=== PATIENT | male | born 1950 | race Caucasian/White ===

== ENCOUNTER 2020-06-29 16:14 | Inpatient (IN) | payer MEDICARE, SELFPAY ==
[2020-06-29] VITALS (22 sets, daily range): BP systolic 77–167; BP diastolic 35–99; PULSE 105–138; RESP 18–28; TEMP 36.9–37.4; O2SAT 94–100
--- NOTE | ~2020-06-29 | XR_ITS ---
EXAMINATION: XR chest port-a-cath/central DATE: 06/30/2020 01:31 INDICATION: Central line placement. TECHNIQUE: frontal view of the chest was obtained. COMPARISON: None FINDINGS: Right subclavian central venous catheter with distal tip extending cephalad into the right jugular ve in. Per discussion with the patient's nurse that line has since been removed and a femoral central ve nous catheter has been placed. Mild linear atelectasis along both lung bases. No pulmonary edema, pleural effusion or pneumothorax. The cardiomediastinal silhouette is normal. IMPRESSION: 1. Mild bibasilar atelectasis. 2. Right subclavian central venous catheter which extends into the right jugular vein which per repor t from patient's nurse has since been removed. Reviewed, dictated and finalized at location A. IMPRESSION: 1. Mild bibasilar atelectasis. 2. Right subclavian central venous catheter which extends into the right jugula r vein which per report from patient's nurse has since been removed.
--- NOTE | ~2020-06-29 | CT_ITS ---
EXAMINATION: CT abdomen pelvis wo con EXAM DATE: 06/29/2020 18:20 INDICATION: Nausea, vomiting, diarrhea, abdominal and groin pain, symptoms for-5 days. TECHNIQUE: Spiral CT of the abdomen and pelvis was performed without contrast. Axial, coronal and s agittal images were reviewed. The dose-length product (DLP) for this examination was 1083.86 mGy-cm. The exposure was tailored according to patient size (auto mA exposure control), and iterative recon struction (ASIR) was used as additional dose reduction technique. There is no prior study for compar javid. FINDINGS: The liver, spleen, adrenal glands and pancreas are unremarkable. The gallbladder is disten ded but otherwise unremarkable. There is no biliary duct dilation. There is a 4 mm stone in the proximal aspect of the right ureter with mild right-sided obstructive ne phropathy. There is a larger 7 mm right inferior calyceal stone and some other smaller inferior calyc eal stones. On the left, there is a 5 mm stone in the distal aspect of the ureter, 2 cm from the uret erovesicular junction. No hydronephrosis on the left at present. The prostate is unremarkable. The bladder is unremarkable. There is no retroperitoneal or pelvic lymphadenopathy. There is mild to m oderate scattered arteriosclerotic disease. The appendix is not positively visualized. There is no pericecal inflammatory change to suggest appe ndicitis. There is moderate-sized gastroesophageal hiatal hernia. There is expected amount of col onic stool. No free intraperitoneal gas. The heart is normal in size. There are no pericardial o r pleural effusions. The lung bases are unremarkable. There are no osteoblastic or osteolytic lesio ns identified. IMPRESSION: 1. Right proximal ureteral 4 mm stone, mild obstructive nephropathy. 2. Left distal ureteral 5 mm stone without hydronephrosis. Reviewed, dictated and finalized at location A.
--- NOTE | ~2020-06-29 | XR_ITS ---
EXAMINATION: XR retrograde pyelo w/stent BI EXAM DATE: 06/29/2020 21:53 INDICATION: Bilateral stent placement. Bilateral ureteral stones. TECHNIQUE: Fluoroscopy used during XR retrograde pyelo w/stent BI performed by Dr. Xu Art MD. The DAP for this procedure was 417 radcm2 FINDINGS: Static images demonstrate right ureteral injection, than left ureteral ejection, placement of bilateral ureteral stents. There are multiple pelvic calcifications consistent with phleboliths, although one of them on the left could be the distal ureteral stone seen on CT. There is mild to mode rate left caliectasis, mild right caliectasis on the images available. Correlate with procedure note . IMPRESSION: Fluoroscopy used during XR retrograde pyelo w/stent BI. Reviewed, dictated and finalized at location G.
--- NOTE | ~2020-06-29 | XR_ITS ---
EXAMINATION: XR abdomen/kub 1V DATE: 07/03/2020 09:04 INDICATION: Ureteral stone. TECHNIQUE: A supine view of the abdomen on 2 radiographs was obtained. COMPARISON: CT abdomen and pelvis 06/29/2020 FINDINGS: There are no dilated loops of bowel. There are phleboliths in the pelvis. There are bilater al internal ureteral stents in expected positions. The kidneys are obscured by bowel. There are 7 mm and 3 mm stones in right kidney. There is a 4 mm stone in distal left ureter. IMPRESSION: 1. 4 mm stone in distal left ureter. 2. Bilateral internal ureteral stents in expected positions. 3. Right kidney stones. Reviewed, dictated and finalized at location A.
[2020-06-29 17:35] LABS: Hematocrit 37.1 % (42.0-52.0); Hemoglobin 12.6 g/dL (14.0-18.0); Immature Platelet Fraction Pct 5.6 % (0.9-11.2); Mean Corpuscular Hemoglobin 29.9 pg (26-34); Mean Corpuscular Volume 88.1 fl (80-100); Mean Platelet Volume 10.6 fl (7.4-10.4); Platelet Count Result 116 k/mm3 (150-375); Red Blood Count 4.21 M/mm3 (4.6-6.20); Red Cell Distribution Width 12.8 % (11.5-14.5); White Blood Count 25.5 K/mm3 (4.5-10.0)
[2020-06-29 17:42] LABS: Add Urine Microscopic? YES; Appearance Urine Turbid (Clear); Bacteria Urine 1+ /hpf; Bilirubin Urine Negative (Negative); Blood Urine 3+ (Negative); Color Urine Yellow (Yellow); Glucose Urine UA Negative (Negative); Ketones Urine Negative (Negative); Leukocyte Esterase Ur 2+ LEU/UL (Negative); Nitrate Urine Negative (Negative); Protein Urine 2+ mg/dL (Negative); RBC Urine >75 /hpf (0-2); Specific Grav Ur 1.016 (1.001-1.035); Squamous Epithelial Cell Urine Few /hpf (Few); Urobilinogen Urine Negative mg/dL (<2.0); WBC Urine >75 /hpf
[2020-06-29 17:45] LABS: Alanine Aminotransferase 19 U/L (4-50); Albumin Level 3.8 g/dL (3.5-5.1); Alkaline Phosphatase 92 U/L (38-126); Anion Gap 13 mmol/L (8-16); Aspartate Amino Transferase 25 U/L (17-59); Bilirubin,Total 1.1 mg/dL (0.2-1.3); Blood Urea Nitrogen 41 mg/dL (9-20); Calcium 9.1 mg/dL (8.4-10.2); Carbon Dioxide 21 mmol/L (22-30); Chloride 102 mmol/L (98-107); Estimated CRCL calculation 17 ml/min; Estimated Glomerular Filt Rate 16; Glucose 116 mg/dL (75-110); Lipase 20 U/L (23-300); Potassium 3.4 mmol/L (3.4-5.0); Sodium 136 mmol/L (137-145)
[2020-06-29 17:59] LABS: Band Neutrophils Percent 21 % (0-6); Lymphocytes Absolute Manual 1.27 K/mm3 (1.1-4.5); Metamyelocytes Percent 3 %; Monocytes Absolute Manual 1.02 K/mm3 (0.1-0.90); Monocytes Percent Manual 4 % (3-9); Neutrophils Absolute Manual 22.44 K/mm3 (1.3-6.7); Neutrophils Percent Manual 67 % (46-73); Platelet Estimate Decreased (Adequate); Total Cells Counted 100
--- NOTE | 2020-06-29 18:59 | PC.NURSE ---
blood cultures x 2 obtained by tech.
[2020-06-29 19:11] LABS: INR 1.4; Prothrombin Time 16.6 Seconds (11.1-14.7)
[2020-06-29 19:12] LABS: Partial Thromboplastin Time 45.4 SECONDS (22.3-36.8)
[2020-06-29 19:22] LABS: Lactic Acid Reflex 2.6 mmol/L (0.7-2.1)
--- NOTE | 2020-06-29 19:32 | ED.ABDPAIN ---
HPI - Abdominal Pain General Chief Complaint: Abdominal Pain Stated Complaint: Sent from [facility], Abd Pain Time Seen by Provider: 06/29/20 18:32 Source: patient Mode of arrival: ambulatory Limitations: no limitations History of Present Illness HPI narrative: This is a 69 year old male that presents to the ER for low abdominal pain x 4 days. Associated with nausea, vomiting, and flank pain. Also reports chills. Denies fever, dysuria, hematuria. Related Data Home Medications Medication Instructions Recorded Confirmed ferrous sulfate 325 mg (65 mg 325 mg PO DAILY 10/28/19 iron) tablet silodosin 8 mg capsule 8 mg PO DAILY 10/28/19 Allergies Allergy/AdvReac Type Severity Reaction Status Date / Time No Known Allergies Allergy Verified 06/29/20 18:34 Review of Systems Review of Systems: Narrative: CONSTITUTIONAL: Reports chills. Denies fever CARDIOVASCULAR: Denies chest pain RESPIRATORY: Denies dyspnea. GASTROINTESTINAL: Reports abdominal pain, nausea, vomiting GENITOURINARY: Denies dysuria or hematuria. All systems reviewed & are unremarkable except as noted in HPI and below PMFSH Past Medical History Medical History (Updated 06/29/20 @ 21:24 by Kimberly Madden PA-C) Adult hypothyroidism Anemia due to vitamin B12 deficiency B12 deficiency Benign essential hypertension BMI 26.0-26.9,adult BPH loc w/o ur obs/LUTS Depression Gastroesophageal reflux disease without esophagitis Iron deficiency anemia Mixed hyperlipidemia Type 2 diabetes mellitus without complication, with no history of insulin use Family History Family History Mother Family history of cardiac disorder Family history of heart disease in male family member before age 55 Father Family history of chronic obstructive pulmonary disease Sibling Family history of malignant neoplasm of ovary, Onset Age: 54 Social History Social History Smoking status: Never smoker Alcohol intake: never Gender identity (if verbalized by the patient): Male Exam Narrative: Exam Narrative: GENERAL: Well-appearing, well-nourished, and in no acute distress. HEAD: Normocephalic, atraumatic. EYES: EOMI. CHEST: Clear to auscultation. No respiratory distress. No wheezes rales or rhonchi HEART: Regular rate and rhythm. No murmur heard. Normal peripheral pulses. ABDOMEN: Soft, nondistended, normal active bowel sounds. Mild tenderness to palpation of the lower abdomen, without guarding. No CVA tenderness EXTREMITIES: Normal range of motion. No edema. SKIN: Warm, dry, no rash. NEURO: No focal deficits. Alert and oriented x3. PSYCH: Normal mood and affect Course Consultations Consultation #1: Spoke with Dr. Lomas who will consult for acute kidney failure. Date: 06/29/20 Time: 21:00 Consultation #2: Spoke with hospitalist about patient and work-up who accepts admission Date: 06/29/20 Time: 21:00 Consultation #3: Spoke with Dr. Art about patient and work-up. Patient will be taken to the OR for septic ureterolithiasis Date: 06/29/20 Time: 21:00 Vital Signs Vital signs: Vital Signs Temperature 98.8 F 06/29/20 16:58 Pulse Rate 120 H 06/29/20 16:58 Respiratory Rate 18 06/29/20 16:58 Blood Pressure 94/50 L 06/29/20 16:58 Pulse Oximetry 96 06/29/20 16:58 Temperature 98.8 F 06/29/20 16:58 Pulse Rate 108 H 06/29/20 20:53 Respiratory Rate 22 H 06/29/20 20:53 Blood Pressure 102/64 06/29/20 20:53 Pulse Oximetry 99 06/29/20 20:53 MDM - Abdominal Pain MDM Narrative Medical decision making narrative: Patient presents to the emergency department for lower abdominal pain, nausea and vomiting. Also reports flank pain and chills. He is afebrile and nontoxic-appearing. Patient tachycardic upon arrival, this improved with IV fluids. Blood pressure also soft (94/50) on arrival, this improved with IV fluids as well.
[2020-06-29] MEDS: SODIUM CHLORIDE 0.9% IV 2,300 ML/1,000 ML BAG 999 ML IV CONT ×3 (19:47→19:49)
[2020-06-29 19:51] LABS: NT Pro B Type Natriuretic Pept 5090 PG/ML (5-100)
--- NOTE | 2020-06-29 19:53 | ECG_ITS ---
Measurements Intervals [place] Rate: 130 P: 27 IA: 153 QRS: 25 QRSD: 77 T: 25 QT: 333 QTc: 490 Interpretive Statements SINUS TACHYCARDIA BORDERLINE ST-T WAVE ABNORMALITY- DIFFUSE LEADS BASELINE ARTIFACT- I, II, III, AVR, AVL, AVF, V1, V6 ABNORMAL ECG Electronically Signed On 06-30-2020 7:04:33 CDT by Marlon Berman D.O.
[2020-06-29 19:58] LABS: CRP 36.3 mg/dL (<1.0)
--- NOTE | 2020-06-29 20:36 | WPDANESEPP ---
Anes - Eval Pre Procedure Procedure: cysto, bilat. stent placement Date/Time: 06/29/20 20:36 Surgeon: farideh Pre Op Diagnosis: Sent from [facility], Abd Pain Patient Data Age: 69 Gender: M Height: 1.75 m Weight: 77.1 kg Last Vital Signs Temp 37.1 C 06/29/20 16:58 Pulse 114 H 06/29/20 19:47 Resp 25 H 06/29/20 19:47 BP 145/99 H 06/29/20 19:47 Pulse Ox 94 06/29/20 18:33 Allergies Allergy/AdvReac Type Severity Reaction Status Date / Time No Known Allergies Allergy Verified 06/29/20 18:34 Home Medications Medication Instructions Recorded Confirmed Type ferrous sulfate 325 mg (65 mg 325 mg PO DAILY 10/28/19 History iron) tablet silodosin 8 mg capsule 8 mg PO DAILY 10/28/19 History metformin 1,000 mg tablet See Rx Instructions .ROUTE 12/20/19 Rx .COMPLEX #180 tablet tamsulosin 0.4 mg capsule 0.4 mg PO DAILY #90 cap 01/18/20 Rx metoprolol succinate 50 mg 50 mg PO DAILY #90 tablet 03/13/20 Rx tablet,extended release 24 hr pantoprazole 40 mg tablet,delayed 40 mg PO QAM #90 tablet 03/13/20 Rx release rosuvastatin 40 mg tablet 40 mg PO DAILY #90 tablet 03/13/20 Rx levothyroxine 88 mcg tablet 88 mcg PO DAILY #90 tablet 04/13/20 Rx citalopram 20 mg tablet 20 mg PO DAILY #90 tablet 06/06/20 Rx quinapril 20 mg tablet 20 mg PO DAILY #90 tablet 06/12/20 Rx Laboratory Tests 06/29/20 06/29/20 06/29/20 17:09 17:10 17:10 WBC 25.5 K/mm3 H K/mm3 (4.5-10.0) RBC 4.21 M/mm3 L M/mm3 (4.6-6.20) Hgb 12.6 g/dL L g/dL (14.0-18.0) Hct 37.1 % L % (42.0-52.0) MCV 88.1 fl fl (80-100) MCH 29.9 pg pg (26-34) MCHC 34.0 g/dl g/dl (32-36) RDW 12.8 % % (11.5-14.5) Plt Count 116 k/mm3 L k/mm3 (150-375) MPV 10.6 fl H fl (7.4-10.4) Immature Gran % (Auto) Not Reportable Neut % (Auto) Not Reportable Lymph % (Auto) Not Reportable [place] % (Auto) Not Reportable Eos % (Auto) Not Reportable Baso % (Auto) Not Reportable Lymph # (Auto) Not Reportable [place] # (Auto) Not Reportable Eos # (Auto) Not Reportable Baso # (Auto) Not Reportable Abs Immat Gran (auto) Not Reportable Absolute Neuts (auto) Not Reportable Absolute Nucleated RBC Not Reportable Total Counted 100 Neutrophils % (Manual) 67 % % (46-73) Band Neutrophils % 21 % H % (0-6) Lymphocytes % (Manual) 5.0 % L % (18-44) Monocytes % (Manual) 4 % % (3-9) Metamyelocytes % 3 % % Nucleated RBC % Not Reportable Abs Neuts (Manual) 22.44 K/mm3 H K/mm3 (1.3-6.7) Abs Lymphs (Manual) 1.27 K/mm3 K/mm3 (1.1-4.5) Abs Monocytes (Manual) 1.02 K/mm3 H K/mm3 (0.1-0.90) Platelet Estimate Decreased (Adequate) % Immature Plt Fraction 5.6 % % (0.9-11.2) PT INR APTT Sodium 136 mmol/L L mmol/L (137-145) Potassium 3.4 mmol/L mmol/L (3.4-5.0) Chloride 102 mmol/L mmol/L (98-107) Carbon Dioxide 21 mmol/L L mmol/L (22-30) Anion Gap 13 mmol/L mmol/L (8-16) BUN 41 mg/dL H mg/dL (9-20) Creatinine 3.80 mg/dL H mg/dL (0.7-1.3) Estim Creat Clear Calc 17 ml/min ml/min Estimated GFR 16 L (59 - ) Glucose 116 mg/dL H mg/dL (75-110) Lactic Acid Calcium 9.1 mg/dL mg/dL (8.4-10.2) Total Bilirubin 1.1 mg/dL mg/dL (0.2-1.3) AST 25 U/L U/L (17-59) ALT 19 U/L U/L (4-50) Alkaline Phosphatase 92 U/L U/L (38-126) C-Reactive Protein NT-Pro-B Natriuret Pep 5090 PG/ML H PG/ML (5-100) Total Protein 7.0 g/dL g/dL (6.3-8.2) Albumin 3.8 g/
--- NOTE | 2020-06-29 20:53 | PC.NURSE ---
rn report given maurice
--- NOTE | 2020-06-29 21:09 | PM.IMHP ---
H&P: HPI History of Present Illness Date/Time: 06/29/20 21:09 Chief complaint: [facility], Abd Pain Narrative: Davi Hendrix is a 69 year old male known to me with a prior history of BPH managed with combination of finasteride and tamsulosin. He then presented 1st to a urgent care and later ER at [facility] with a 4 day history of abdominal pain nausea vomiting and chilling without documented fevers. ER evaluation revealed a picture of sepsis with acute kidney injury and bilateral obstructing ureteral stones (4 mm proximal right ureteral stone and 5 mm distal left ureteral stone). Review of Systems Cardiovascular: Cardiovascular: Denies chest pain, Denies lightheadedness, Denies palpitations and Denies dyspnea Respiratory: Respiratory: Denies dyspnea Gastrointestinal: Gastrointestinal: Denies diarrhea, Denies nausea and Denies vomiting Genitourinary: Genitourinary: Denies hematuria and Denies dysuria Endocrine: Endocrine: Denies palpitations PMFSH Past Medical History Medical History (Updated 06/29/20 @ 21:11 by Xu Art MD) Adult hypothyroidism Anemia due to vitamin B12 deficiency B12 deficiency Benign essential hypertension BMI 26.0-26.9,adult BPH loc w/o ur obs/LUTS Depression Gastroesophageal reflux disease without esophagitis Iron deficiency anemia Mixed hyperlipidemia Type 2 diabetes mellitus without complication, with no history of insulin use Family History Family History Mother Family history of cardiac disorder Family history of heart disease in male family member before age 55 Father Family history of chronic obstructive pulmonary disease Sibling Family history of malignant neoplasm of ovary, Onset Age: 54 Social History Social History Smoking status: Never smoker Alcohol intake: never Gender identity (if verbalized by the patient): Male Meds Home Medications and Allergies Home Medications Medication Instructions Recorded Confirmed Type ferrous sulfate 325 mg (65 mg 325 mg PO DAILY 10/28/19 History iron) tablet silodosin 8 mg capsule 8 mg PO DAILY 10/28/19 History metformin 1,000 mg tablet See Rx Instructions .ROUTE 12/20/19 Rx .COMPLEX #180 tablet tamsulosin 0.4 mg capsule 0.4 mg PO DAILY #90 cap 01/18/20 Rx metoprolol succinate 50 mg 50 mg PO DAILY #90 tablet 03/13/20 Rx tablet,extended release 24 hr pantoprazole 40 mg tablet,delayed 40 mg PO QAM #90 tablet 03/13/20 Rx release rosuvastatin 40 mg tablet 40 mg PO DAILY #90 tablet 03/13/20 Rx levothyroxine 88 mcg tablet 88 mcg PO DAILY #90 tablet 04/13/20 Rx citalopram 20 mg tablet 20 mg PO DAILY #90 tablet 06/06/20 Rx quinapril 20 mg tablet 20 mg PO DAILY #90 tablet 06/12/20 Rx Allergies Allergy/AdvReac Type Severity Reaction Status Date / Time No Known Allergies Allergy Verified 06/29/20 18:34 Vital Signs Vital Signs - 24 hr 06/29/20 16:58 06/29/20 18:29 06/29/20 18:30 Temperature 98.8 F Pulse Rate 120 H 110 H 107 H Respiratory Rate 18 18 22 H Blood Pressure 94/50 L 108/64 Pulse Oximetry 96 06/29/20 18:31 06/29/20 18:32 06/29/20 18:33 Temperature Pulse Rate 108 H 107 H 110 H Respiratory Rate 22 H 25 H 21 H Blood Pressure 102/64 102/64 Pulse Oximetry 99 94 06/29/20 18:45 06/29/20 18:46 06/29/20 19:00 Temperature Pulse Rate 112 H 114 H 106 H Respiratory Rate 19 28 H 18 Blood Pressure Pulse Oximetry 06/29/20 19:43 06/29/20 19:45 06/29/20 19:47 Temperature Pulse Rate 113 H 112 H 114 H Respiratory Rate 22 H 23 H 25 H Blood Pressure 145/99 H Pulse Oximetry Exam Const: General: no acute distress Resp: Effort & Inspection: normal respiratory effort GI: Inspection: non-distended GI Palp: No abdominal tenderness and No Guarding due to palpation present (GI) Auscultation: normal bowel sounds
[2020-06-29] MEDS: LIDOCAINE HCL 2% GEL UROJET 10 ML PKG MUCOUS MEM (21:42)
--- NOTE | 2020-06-29 21:56 | WPDANESEFPP ---
Anes - Eval Final PreProcedure Day of Procedure 06/29/20 21:56 Patient weight: normal Heart: tachycardia Lungs: clear to auscultation Airway: Mallampati scale class II Neurological: alert and oriented Last oral intake: >/= 8 hours ASA classification: III Emergent: yes Anesthetic plan: proceed Anesthesia type and monitoring: general ETT and standard monitoring Informed Consent: The patient's anesthetic plan and its attendant risks and benefits were discussed with the patient/family/POA. Questions were solicited and answers provided to the satisfaction of the patient/family/POA.
[2020-06-29] MEDS: LACTATED RINGERS 1,000 ML 30 ML IV CONT ×2 (21:58→23:31)
[2020-06-29 22:08] LABS: Reflex Lactic Acid Yes or No Add Lactic
--- NOTE | 2020-06-29 22:12 | P.OP_ITS ---
Procedure Note - Detailed Date of procedure: 06/29/20 Pre-op diagnosis: Sepsis/UTI/ureterolithiasis Post-op diagnosis: same Procedure performed: 1. Cystoscopy, bilateral RPG. 2. Bilateral ureteral stent placement. Description of procedure: Patient is brought to OR where he was prepped/draped in a routine fashion while in a dorsal lithotomy position. 2% xylocaine jelly was introduced intraurethrally and a general endotracheal anesthetic was induced without incident. Cystoscopy is undertaken with the 19 F rigid cystoscope. There is no urethral stricture with moderate lateral lobe hyperplasia of the prostate and a moderate median lobe. The bladder mucosa as high as markedly hyperemic consistent with acute bacterial cystitis. His a single orthotopic ureteral orifice bilaterally. Bilateral retrograde pyelograms were obtained o utlined the renal pelvis. Bilateral 4.8 F double-J ureteral stents were placed with proximal coil in the renal pelvis and distal coil in the bladder. Scopes and wires were removed. An 18 F urethral catheter was placed to drainage. The patient tolerated procedure well was taken recovery room in good condition. He did become febrile and remained tachycardic throughout the procedure. Implants: Bilat. 4.8F ureteral stents. Anesthesia: GETA Surgeon: Xu Art MD Estimated blood loss (mL): 0 Drains: Yes (Bilat. ureteral 4.8F stents) Packing: No Pathology: none sent Complications: No immediate complications Condition: stable Disposition: PACU
[2020-06-29 22:46] LABS: Glucose Point of Care 89 (65-105)
[2020-06-29] MEDS: PHENYLEPHRINE 1,000 MCG/10 ML SYRINGE 100 MCG IV PUSH ×2 (23:43→23:51)
[2020-06-30] VITALS (25 sets, daily range): BP systolic 84–129; BP diastolic 50–90; PULSE 83–107; RESP 18–28; TEMP 36.6–37.4; O2SAT 92–99; BMI 26.9
[2020-06-30] MEDS: DEXTROSE 5%/LACTATED RINGERS 1,000 ML 150 ML IV CONT ×2 (01:05→06:40)
[2020-06-30] MEDS: NOREPINEPHRINE 8 MG/D5W 250 ML 8 MG/250 ML BAG 9.38 MG IV CONT (02:10)
[2020-06-30 02:13] LABS: Lactic Acid Reflex 2.3 mmol/L (0.7-2.1)
--- NOTE | 2020-06-30 03:09 | PM.IMHP ---
H&P: HPI History of Present Illness Date/Time: 06/30/20 03:09 Chief complaint: Sepsis/UTI/ureterolithiasis Narrative: This is a pleasant 69-year-old diabetic male with known history of chronic hypertension, hypothyroidism, and GERD who presented to the hospital with a complaint of lower abdominal discomfort since last weekend. Associated symptoms include chills, nausea, vomiting, and malaise. Patient denies any significant fever, dysuria, hematuria, or decreased urine output. in the ER yesterday the patient was evaluated and found to be septic with tachycardia, tachypnea, leukocytosis, and an elevated lactic acid level of 2.6. Patient was treated with a 30 cc/kilogram IV fluid bolus and started on ceftriaxone IV. CT abdomen pelvis demonstrated a right proximal ureteral 4 mm stone, mild obstructive nephropathy and left distal ureteral 5 mm stone without hydronephrosis. Urology, Dr. Art was consulted and took the patient immediately to the operating room to have bilateral ureteral stents placed. the patient became hypotensive in the operating room and recovery and the patient was started on peripheral Anjum-Synephrine. He was then upgraded to the intensive care unit per urology. The patient arrived to the ICU hypotensive on peripheral Anjum-Synephrine and nursing staff called me urgently to evaluate the patient. The patient tolerated stent placement well and currently has no significant complaints other than feeling chills. Review of Systems Review of Systems: All systems reviewed & are unremarkable except as noted in HPI and below PMFSH Past Medical History Medical History Adult hypothyroidism Anemia due to vitamin B12 deficiency B12 deficiency Benign essential hypertension BMI 26.0-26.9,adult BPH loc w/o ur obs/LUTS Depression Gastroesophageal reflux disease without esophagitis Iron deficiency anemia Mixed hyperlipidemia Type 2 diabetes mellitus without complication, with no history of insulin use Family History Family History Mother Family history of cardiac disorder Family history of heart disease in male family member before age 55 Father Family history of chronic obstructive pulmonary disease Sibling Family history of malignant neoplasm of ovary, Onset Age: 54 Social History Social History Smoking status: Never smoker Alcohol intake: never Substance use: never Gender identity (if verbalized by the patient): Male Spiritual care concerns: No Meds Home Medications and Allergies Home Medications Medication Instructions Recorded Confirmed Type ferrous sulfate 325 mg (65 mg 325 mg PO DAILY 10/28/19 06/30/20 History iron) tablet silodosin 8 mg capsule 8 mg PO DAILY 10/28/19 06/30/20 History tamsulosin 0.4 mg capsule 0.4 mg PO DAILY #90 cap 01/18/20 06/30/20 Rx metoprolol succinate 50 mg 50 mg PO DAILY #90 tablet 03/13/20 06/30/20 Rx tablet,extended release 24 hr pantoprazole 40 mg tablet,delayed 40 mg PO QAM #90 tablet 03/13/20 06/30/20 Rx release rosuvastatin 40 mg tablet 40 mg PO DAILY #90 tablet 03/13/20 06/30/20 Rx levothyroxine 88 mcg tablet 88 mcg PO DAILY #90 tablet 04/13/20 06/30/20 Rx citalopram 20 mg tablet 20 mg PO DAILY #90 tablet 06/06/20 06/30/20 Rx quinapril 20 mg tablet 20 mg PO DAILY #90 tablet 06/12/20 06/30/20 Rx finasteride 5 mg PO DAILY 06/30/20 06/30/20 History metformin 1,000 mg PO BID 06/30/20 06/30/20 History Allergies Allergy/AdvReac Type Severity Reaction Status Date / Time No Known Allergies Allergy Verified 06/29/20 18:34 Vital Signs Vital Signs - 24 hr 06/29/20 16:58 06/29/20 18:29 06/29/20 18:30 Temperature 37.1 C Pulse Rate 120 H 110 H 107 H Respiratory Rate 18 18 22 H Blood Pressure 94/50 L 108/64 Pulse Oximetry 96 06/29/20 18:31 06/29/20 18:32 06/29/20 18:
--- NOTE | 2020-06-30 03:12 | PC.NURSE ---
This patient, Davi Hendrix, was admitted to Intensive Care Unit-10 at 0030 06/30/2020. Patient/family oriented to hospital policies and general routines including ID bracelet, bed and alarms, visiting hours, pain management, procedures, bathroom and other care routines, personal items, smoking policy, room service/diet, and visiting hours. Information on how to activate the Rapid Response Team has been discussed. Patient/Family are encouraged to report perceived risks to care and to ask questions if they do not understand what they are told or what they should do.
--- NOTE | 2020-06-30 03:20 | P.PCNBED_ITS ---
Procedures Central Line Placement Right Femoral: Central Line Date: 06/30/20 Central Line Time: 02:30 Discussed w/ the patient/family/POA,the placement of a central venous catheter, including its clinical necessity/indication & associated potential risks, benifits and alternatives.: Yes Time Out Performed: Yes Patient Position: supine Patient placed on monitor/pulse ox: Yes Provider Prep: mask, sterile gloves, Max. sterile barrier precautions, cap and hand hygiene with conventional soap/water or alcohol based hand rub Central line prep: Povidone-Iodine 1% and sterile full body sheet applied Local anesthesia used: lidocaine 1% Amount of anesthesia used (ml): 5 Sterile US Technique with sterile gel/sterile probe covers: Yes Central line lumen inserted: triple Lithuanian: 7 Length (cm): 20 Depth of Insertion (cm): 20 Post procedure: sutured in place, good blood return, all ports aspirated, flushed, capped, tegaderm, antimicrobial disc and aseptic technique maintained throughout procedure Post procedure x-ray: tip of catheter in good position and no pneumothorax seen Patient tolerated procedure: well and no complications Complications: none Additional comments: Date of service was 06/30/2020 at 02:30 hrs.
[2020-06-30 06:10] LABS: Hematocrit 30.7 % (42.0-52.0); Hemoglobin 10.5 g/dL (14.0-18.0); Immature Platelet Fraction Pct 5.9 % (0.9-11.2); Mean Corpuscular HGB Conc 34.2 g/dl (32-36); Mean Corpuscular Hemoglobin 30.2 pg (26-34); Mean Corpuscular Volume 88.2 fl (80-100); Platelet Count Result 82 k/mm3 (150-375); Red Blood Count 3.48 M/mm3 (4.6-6.20); Red Cell Distribution Width 12.9 % (11.5-14.5); White Blood Count 22.7 K/mm3 (4.5-10.0)
[2020-06-30 06:24] LABS: Anion Gap 10 mmol/L (8-16); Blood Urea Nitrogen 42 mg/dL (9-20); Calcium 7.3 mg/dL (8.4-10.2); Carbon Dioxide 20 mmol/L (22-30); Chloride 105 mmol/L (98-107); Estimated CRCL calculation 21 ml/min; Estimated Glomerular Filt Rate 20; Glucose 202 mg/dL (75-110); Potassium 3.3 mmol/L (3.4-5.0); Sodium 135 mmol/L (137-145)
[2020-06-30] MEDS: INSULIN ASPART (*BKC) 100 UNITS/ML SUB-Q ×2 (06:39→12:10)
[2020-06-30] MEDS: LEVOTHYROXINE SODIUM INJ 100 MCG/5 ML VIAL 44 MCG IV PUSH (06:40)
--- NOTE | 2020-06-30 07:29 | WPDANESPN ---
Anes - Prog Note Post-Op Date/Time: 06/30/20 07:29 Cardiovascular status: other (Levophed gtt in per ICU management) Respiratory status: normal Airway patency: baseline Mental status: baseline Post-Op hydration status: normal Vital Signs: Last Vital Signs Temp 36.6 C 06/30/20 02:34 Pulse 96 06/30/20 06:41 Resp 24 H 06/30/20 06:00 BP 102/63 06/30/20 06:41 Pulse Ox 98 06/30/20 06:00 Pain Score (VAS): 10/18 I/O: Intake & Output 06/29/20 06/29/20 06/30/20 15:59 23:59 07:59 Intake Total 3450 1130 Output Total 60 375 Balance 3390 755 Laboratory Tests 06/30/20 06:01 06/30/20 06:01 06/29/20 06/29/20 06/29/20 17:09 17:10 17:10 WBC 25.5 H RBC 4.21 L Hgb 12.6 L Hct 37.1 L MCV 88.1 MCH 29.9 MCHC 34.0 RDW 12.8 Plt Count 116 L MPV 10.6 H Immature Gran % (Auto) Not Reportable Neut % (Auto) Not Reportable Lymph % (Auto) Not Reportable Vigo % (Auto) Not Reportable Eos % (Auto) Not Reportable Baso % (Auto) Not Reportable Lymph # (Auto) Not Reportable [place] # (Auto) Not Reportable Eos # (Auto) Not Reportable Baso # (Auto) Not Reportable Abs Immat Gran (auto) Not Reportable Absolute Neuts (auto) Not Reportable Absolute Nucleated RBC Not Reportable Total Counted 100 Neutrophils % (Manual) 67 Band Neutrophils % 21 H Lymphocytes % (Manual) 5.0 L Monocytes % (Manual) 4 Metamyelocytes % 3 Nucleated RBC % Not Reportable Abs Neuts (Manual) 22.44 H Abs Lymphs (Manual) 1.27 Abs Monocytes (Manual) 1.02 H Platelet Estimate Decreased % Immature Plt Fraction 5.6 PT INR APTT Sodium 136 L Potassium 3.4 Chloride 102 Carbon Dioxide 21 L Anion Gap 13 BUN 41 H Creatinine 3.80 H Estim Creat Clear Calc 17 Estimated GFR 16 L Glucose 116 H POC Capillary Glucose Lactic Acid Calcium 9.1 Total Bilirubin 1.1 AST 25 ALT 19 Alkaline Phosphatase 92 C-Reactive Protein NT-Pro-B Natriuret Pep 5090 H Total Protein 7.0 Albumin 3.8 Lipase 20 L Urine Color Urine Appearance Urine pH Ur Specific Con[place]ion Urine Protein Urine Glucose (UA) Urine Ketones Ur Blood (Man) Urine Nitrate Urine Bilirubin Urine Urobilinogen Leukocyte Esterase Rfl Urine RBC Urine WBC Ur Squamous Epith Cells Urine Bacteria Blood Type Antibody Screen 06/29/20 06/29/20 06/29/20 17:10 17:19 19:02 WBC RBC Hgb Hct MCV MCH MCHC RDW Plt Count MPV Immature Gran % (Auto) Neut % (Auto) Lymph % (Auto) Vigo % (Auto) Eos % (Auto) Baso % (Auto) Lymph # (Auto) [place] # (Auto) Eos # (Auto) Baso # (Auto) Abs Immat Gran (auto) Absolute Neuts (auto) Absolute Nucleated RBC Total Counted Neutrophils % (Manual) Band Neutrophils % Lymphocytes % (Manual) Monocytes % (Manual) Metamyelocytes % Nucleated RBC % Abs Neuts (Manual) Abs Lymphs (Manual) Abs Monocytes (Manual) Platelet Estimate % Immature Plt Fraction PT 16.6 H INR 1.4 APTT 45.4 H Sodium Potassium Chloride Carbon Dioxide Anion Gap BUN Creatinine Estim Creat Clear Calc Estimated GFR Glucose POC Capillary Glucose Lactic Acid 2.6 H Calcium Total Bilirubin AST ALT Alkaline Phosphatase C-Reactive Protein NT-Pro-B Natriuret Pep Total Protein Albumin Lipase Urine Color Yellow Urine Appearance Turbid H Urine pH 6.0 Ur Specific [place] 1.016 Urine Protein 2+ H Urine Glucose (UA) Negative Urine Ketones Negative Ur Blood (Man) 3+ H Urine Nitrate Negative Urine Bilirubin Negative Urine Urobilinogen Negative Leukocyte Esterase Rfl 2+ H Urine RBC >75 H Urine WBC >75 H Ur Squamous Epith Cells Few Urine Bacteria 1
[2020-06-30 08:26] LABS: Lactic Acid Reflex 2.9 mmol/L (0.7-2.1)
[2020-06-30] MEDS: PANTOPRAZOLE SODIUM IV 40 MG VIAL IV PUSH (08:48)
[2020-06-30] MEDS: HEPARIN SODIUM 5,000 UNITS/ML VIAL 5000 UNITS SUB-Q ×2 (08:49→20:27)
[2020-06-30 09:28] LABS: CRP 36.7 mg/dL (<1.0)
--- NOTE | 2020-06-30 10:58 | WPDUROPN2 ---
Progress Note: A&P Assessment and Plan (1) Sepsis: Qualifiers: Acute renal failure type: unspecified Sepsis acute organ dysfunction status: with acute organ dysfunction Sepsis type: sepsis due to unspecified organism Severe sepsis acute organ dysfunction type: acute renal failure Severe sepsis shock status: without septic shock Qualified Code(s): A41.9 - Sepsis, unspecified organism; R65.20 - Severe sepsis without septic shock; N17.9 - Acute kidney failure, unspecified Code(s): A41.9 - Sepsis, unspecified organism Status: Acute (2) Bilateral ureteral calculi: Code(s): N20.1 - Calculus of ureter Status: Acute (3) Acute kidney injury: Code(s): N17.9 - Acute kidney failure, unspecified Status: Acute (4) Pyelonephritis: Code(s): N12 - Tubulo-interstitial nephritis, not specified as acute or chronic Status: Acute Assessment and Plan: Cystoscopy, bilateral ureteral stent placement. Admission for management of obstructive pyelonephritis, DANIELLE, etc. Definite stone intervention ([facility] vs. endoscopic extraction) 2-[address], once UTI thoroughly treated. 06/30/2020 Waning need for pressor support, slightly improved renal function and leukocytosis all positive signs overnight. Tolerating stents well. On Ceftriaxone pending cultures. Will not plan definitive stone management until 2-3 weeks from now. Subjective Subjective Date/Time Seen: 06/30/20 10:58 Bilateral obstructing ureteral stones with obstructive pyelonephritis. Tolerating bilateral ureteral stents. Review of Systems Cardiovascular: Cardiovascular: Denies chest pain, Denies lightheadedness, Denies palpitations and Denies dyspnea Respiratory: Respiratory: Denies dyspnea Gastrointestinal: Gastrointestinal: Denies diarrhea, Denies nausea and Denies vomiting Genitourinary: Genitourinary: Denies hematuria and Denies dysuria Endocrine: Endocrine: Denies palpitations Exam Const: General: no acute distress Resp: Effort & Inspection: normal respiratory effort GI: Inspection: non-distended GI Palp: No abdominal tenderness and No Guarding due to palpation present (GI) Auscultation: normal bowel sounds Objective Data Vital Signs Vital Signs: Vital Signs - 24 hr 06/29/20 16:58 06/29/20 18:29 06/29/20 18:30 Temperature 98.8 F Pulse Rate 120 H 110 H 107 H Respiratory Rate 18 18 22 H Blood Pressure 94/50 L 108/64 Pulse Oximetry 96 06/29/20 18:31 06/29/20 18:32 06/29/20 18:33 Temperature Pulse Rate 108 H 107 H 110 H Respiratory Rate 22 H 25 H 21 H Blood Pressure 102/64 102/64 Pulse Oximetry 99 94 06/29/20 18:45 06/29/20 18:46 06/29/20 19:00 Temperature Pulse Rate 112 H 114 H 106 H Respiratory Rate 19 28 H 18 Blood Pressure Pulse Oximetry 06/29/20 19:43 06/29/20 19:45 06/29/20 19:47 Temperature Pulse Rate 113 H 112 H 114 H Respiratory Rate 22 H 23 H 25 H Blood Pressure 145/99 H Pulse Oximetry 06/29/20 20:53 06/29/20 21:58 06/29/20 22:10 Temperature 99.3 F Pulse Rate 108 H 138 H 131 H Respiratory Rate 22 H 28 H 26 H Blood Pressure 102/64 167/82 H 134/70 Pulse Oximetry 99 96 96 06/29/20 22:25 06/29/20 22:40 06/29/20 22:55 Temperature 98.4 F Pulse Rate 119 H 115 H 109 H Respiratory Rate 24 H 22 H 22 H Blood Pressure 98/56 L 87/45 L 81/46 L Pulse Oximetry 100 97 98 06/29/20 23:10 06/29/20 23:25 06/29/20 23:40 Temperature Pulse Rate 106 H 105 H 105 H Respiratory Rate 22 H 22 H 24 H Blood Pressure 77/41 L 80/35 L 78/41 L Pulse Oximetry 98 99 98 06/29/20 23:55 06/30/20 00:10 06/30/20 00:27 Temperature 99.0 F 98.4 F Pulse Rate 109 H 104 H 106 H Respiratory Rate 24 H 20 23 H Blood Pressure 78/50 L 91/55 L 90/54 L Pulse Oximetry 98 99 94 06/30/20 00:57 06/30/20 01:10 06/30/20 01:57 Temperature 98.3 F 98.2 F Pulse Rate 105 H 104 H 104 H Respiratory Rate 23 H 23 H Blood Pressure 88/
[2020-06-30 11:13] LABS: Reflex Lactic Acid Yes or No Add Lactic
[2020-06-30 11:53] LABS: Glucose Point of Care 220 (65-105)
--- NOTE | 2020-06-30 12:22 | WPDCNINT ---
Assessment and Plan Assessment and plan (1) Septic shock: Code(s): A41.9 - Sepsis, unspecified organism; R65.21 - Severe sepsis with septic shock Status: Acute Assessment and Plan: septic shock with hypotension, tachycardia, elevated lactic acid level, acute kidney injury and urinary tract infection - CT scan of the abdomen and pelvis showed bilateral ureteral stones, status post bilateral ureteral stents patient with cystoscopy and retrograde pyelogram. - Given pyelonephritis, will switch antibiotics to imipenem and vancomycin, - patient has central line which was inserted by the hospitalist overnight, - continue Levophed, maintain mean arterial pressures greater than 65-70 mmHg for adequate renal perfusion - blood cultures growing Gram negative bacilli 2/2 bottles - urine cultures have been obtained and pending (2) Acute kidney failure: Qualifiers: Acute renal failure type: unspecified Qualified Code(s): N17.9 - Acute kidney failure, unspecified Code(s): N17.9 - Acute kidney failure, unspecified Status: Acute Assessment and Plan: patient with acute kidney injury most likely related bilateral urethral lithiasis and pyelonephritis. - adequate IV fluids were given in the ED, OR. Continue maintenance IV fluids is encourage oral intake - John in place, will continue to monitor urine output, renal function electrolytes (3) Ureterolithiasis: Code(s): N20.1 - Calculus of ureter Status: Acute Assessment and Plan: as above - on hyoscyamine stress echo urology - pain control (4) Pyelonephritis: Code(s): N12 - Tubulo-interstitial nephritis, not specified as acute or chronic Status: Acute Assessment and Plan: antibiotics as above (5) Type 2 diabetes mellitus without complication, with no history of insulin use: Code(s): E11.9 - Type 2 diabetes mellitus without complications Status: Chronic Assessment and Plan: continue sliding scale insulin Accu-Cheks (6) DVT prophylaxis: Code(s): Z29.9 - Encounter for prophylactic measures, unspecified Status: Acute Assessment and Plan: continue heparin SQ Additional Plan discussed with patient updated with his condition and plan of care. I answered all questions. Patient is aware that he is on a vasopressors, antibiotics. Code status: Full code critical care time spent: 47 minutes Due to a high probability of clinically significant, life threatening deterioration, the patient required my highest level of preparedness to intervene emergently and I personally spent this critical care time directly and personally managing the patient. This critical care time included obtaining a history; examining the patient; pulse oximetry; ordering and review of studies; arranging urgent treatment with development of a management plan; evaluation of patient's response to treatment; frequent reassessment; and discussions with other providers. It was exclusive of separately billable procedures and treating other patients and teaching time. Please see Assessment and Plan section and the rest of the note for further information on patient assessment and treatment [employer] Consult Note Consult date: 06/30/20 Time Seen: 07:14 Reason for consult: septic shock, ureterolithiasis, pyelonephritis, fevers, chills HPI: Davi Hendrix is a 69 year old male with past medical history of hypothyroidism, facial hypertension, BPH, depression, and deficiency anemia, hyperlipidemia, diabetes type 2 presented to the ED on 06/29/2020 complains of fevers, chills, rigors, nausea, vomiting, malaise. Patient was found to be in severe sepsis and septic shock with hypotension, elevated lactic acid, tachycardia, tachypnea and leukocytosis. Patient was given 30 mL/kilogram of IV fluid bolus. Received ceftriaxone. CT scan of the abdomen and pelvis showed right proximal ureter 4 mm stone with mild ob
[2020-06-30] MEDS: DEXTROSE 5%/LACTATED RINGERS 1,000 ML 100 ML IV CONT (15:18)
--- NOTE | 2020-06-30 16:22 | PM.IMPN ---
Progress Note: A&P Assessment and Plan (1) Septic shock: Code(s): A41.9 - Sepsis, unspecified organism; R65.21 - Severe sepsis with septic shock Status: Acute Assessment and Plan: With significant hypotension despite adequate IV fluid bolus. source of sepsis appears to be urinary. continue IV antibiotics and IV fluids. blood and urine cultures both growing gram-negative rods with final sensitivity and identification pending (2) Acute kidney failure: Qualifiers: Acute renal failure type: unspecified Qualified Code(s): N17.9 - Acute kidney failure, unspecified Code(s): N17.9 - Acute kidney failure, unspecified Status: Acute Assessment and Plan: likely secondary to obstructive nephropathy and sepsis. Continue IV fluids. Ureteral stents have been placed. creatinine already starting to fall at 3.1 today (3) Pyelonephritis: Code(s): N12 - Tubulo-interstitial nephritis, not specified as acute or chronic Status: Acute Assessment and Plan: Continue IV antibiotics. Urine cultures growing Gram-negative sosa and switch from ceftriaxone to imipenem by physical therapist (4) Bilateral ureteral calculi: Code(s): N20.1 - Calculus of ureter Status: Acute Assessment and Plan: Continue pain control and Urology to do stone extraction 2-3 weeks (5) Type 2 diabetes mellitus without complication, with no history of insulin use: Code(s): E11.9 - Type 2 diabetes mellitus without complications Status: Chronic Assessment and Plan: Accu-Cheks, sliding scale insulin coverage, hypoglycemia protocol. (6) Mixed hyperlipidemia: Code(s): E78.2 - Mixed hyperlipidemia Status: Chronic Assessment and Plan: Resume statin therapy when appropriate. (7) Benign essential hypertension: Code(s): I10 - Essential (primary) hypertension Status: Chronic Assessment and Plan: Patient has been hypotensive. Will hold home oral antihypertensives, beta-rashard and DEVANTE-inhibitor. Resume when appropriate. (8) Gastroesophageal reflux disease without esophagitis: Code(s): K21.9 - Gastro-esophageal reflux disease without esophagitis Status: Chronic Assessment and Plan: Continue PPI therapy. (9) Adult hypothyroidism: Code(s): E03.9 - Hypothyroidism, unspecified Status: Chronic Assessment and Plan: Continue levothyroxine IV. Subjective Date/time seen: 06/30/20 16:22 Interval history: Date of visit 06/30. 69-year-old hypertensive male with BPH and type 2 diabetes admitted with septic shock and bilateral renal calculi. Was taken to the OR for urgent still stent placement 06/29 and now comfortable in ICU with pressors to maintain pressure.. No nausea minimal discomfort with stents Exam Narrative: Exam Narrative: blood pressure 120/72 pulse 86 temp 37.4? with the Levophed. Pupils equal reactive light sclera anicteric lungs clear CV regular rate rhythm no murmurs abdomen soft nontender no masses extremities without edema distal pulses 2+ with a central femoral line John in place Objective Data Vital Signs Vital Signs: Vital Signs - 24 hr 06/29/20 16:58 06/29/20 18:29 06/29/20 18:30 Temperature 37.1 C Pulse Rate 120 H 110 H 107 H Respiratory Rate 18 18 22 H Blood Pressure 94/50 L 108/64 Pulse Oximetry 96 06/29/20 18:31 06/29/20 18:32 06/29/20 18:33 Temperature Pulse Rate 108 H 107 H 110 H Respiratory Rate 22 H 25 H 21 H Blood Pressure 102/64 102/64 Pulse Oximetry 99 94 06/29/20 18:45 06/29/20 18:46 06/29/20 19:00 Temperature Pulse Rate 112 H 114 H 106 H Respiratory Rate 19 28 H 18 Blood Pressure Pulse Oximetry 06/29/20 19:43 06/29/20 19:45 06/29/20 19:47 Temperature Pulse Rate 113 H 112 H 114 H Respiratory Rate 22 H 23 H 25 H Blood Pressure 145/99 H Pulse Oximetry 06/29/20 20:53 06/29/20 21:58 06/09
[2020-06-30] MEDS: ONDANSETRON INJ 4 MG/2 ML VIAL IV PUSH (17:16)
--- NOTE | 2020-06-30 18:13 | PM.CNNEP ---
Assessment and Plan Assessment and plan (1) Acute kidney injury: Code(s): N17.9 - Acute kidney failure, unspecified Status: Acute Assessment and Plan: due to multifactorial ATN: - prerenal factors - infection (stones + pyelonephritis) - obstruction - use of DEVANTE-I and metformin priot to admission - hypotension renal function slowly improving continue supportive care (2) Septic shock: Code(s): A41.9 - Sepsis, unspecified organism; R65.21 - Severe sepsis with septic shock Status: Acute Assessment and Plan: as noted on admission with elevated WBC, lactic acidosis, tachycarida + tachypnea, and hypotension on vasopressor therapy to maintain MAP follow cultures -- on broad spectrum antibiotics continue current therapy (3) Bilateral ureteral calculi: Code(s): N20.1 - Calculus of ureter Status: Acute Assessment and Plan: Urology following s/p cystoscopy and bilateral retrograde pyelograms with bilateral ureteral stent placement will need for definitive treatment for stones at a later date once more stable (4) Benign essential hypertension: Code(s): I10 - Essential (primary) hypertension Status: Chronic Assessment and Plan: not an issue at this time follow trend of hemodynamics (5) Diabetes: Code(s): E11.9 - Type 2 diabetes mellitus without complications Status: Chronic Assessment and Plan: follow accucheks Will continue to follow. History of Present Illness Reason for Consult Consult date: 06/30/20 Reason for consult: acute renal failure Chief Complaint Chief complaint: Sepsis/UTI/ureterolithiasis History of Present Illness Narrative: The patient is a 69 year old male with past medical history as outlined below who presented to [facility] ER with complains of fevers, chills, rigors, nausea, vomiting, malaise. Apparently, the patient is having the symptoms for last 4-5 days but he had hoped that they would resolve on their own. As the symptoms continued to get worse and worse, this led to his eventual presentation current to the emergency room. Workup and evaluation emergency room demonstrated the patient to be relatively hypotensive but did improve with IV fluid boluses. Routine blood test demonstrated significant leukocytosis nd acute renal failure. Along with relative hypotension, he also had tachycardia and tachypnea concerning for early sepsis. His lactic acid was found to be elevated and further testing included a CT scan of the abdomen pelvis demonstrating a right proximal ureteral stone with mild obstructive nephropathy and a little left distal ureteral stone without hydronephrosis. His urinalysis was consistent with a urinary tract infection as well. Urology was contacted for consult from the ER and after appropriate cultures were obtained and in and initiation of broad-spectrum IV antibiotic therapy, he was taken to the OR for cystoscopy and bilateral retrograde pyelograms. He successfully underwent this procedure with bilateral ureteral stent placement but was transferred to the ICU due to his persistent hypotension. On arrival to the ICU, his blood pressure was not responsive to further IV fluid boluses so he had a central line placed and was started on vasopressor therapy to maintain his mean arterial pressure. He was receiving Anjum-Synephrine via a peripheral IV access prior to his arrival to the ICU. In the last 24 hours, the patient states he has been feeling much better with all the interventions that have been done. He is apparently tolerating oral intake but his urine output has been fluctuating since his admission. Renal consultation was requested due to his acute kidney injury/acute renal failure. According to the patient, he has no history with regard to kidney disease or renal insufficiency although he does have risk factors for t
[2020-06-30 18:14] LABS: Glucose Point of Care 110 (65-105)
[2020-07-01] VITALS (9 sets, daily range): BP systolic 100–150; BP diastolic 64–81; PULSE 73–96; RESP 17–24; TEMP 36.5–36.6; O2SAT 93–99
[2020-07-01 00:13] LABS: Glucose Point of Care 147 (65-105)
[2020-07-01] MEDS: DEXTROSE 5%/LACTATED RINGERS 1,000 ML 100 ML IV CONT ×3 (01:17→20:39)
[2020-07-01] MEDS: LEVOTHYROXINE SODIUM INJ 100 MCG/5 ML VIAL 44 MCG IV PUSH (05:07)
[2020-07-01 05:51] LABS: Magnesium 1.3 mg/dL (1.6-2.3); Phosphorus 2.6 mg/dL (2.5-4.5)
[2020-07-01 06:12] LABS: Basophils Absolute Auto 0.1 K/mm3 (0.0-0.1); Basophils Percent Auto 0.6 % (0.2-1.2); Eosinophils Absolute Auto 0.2 K/mm3 (0-0.3); Eosinophils Percent Auto 1.1 % (0-4.4); Hematocrit 29.9 % (42.0-52.0); Hemoglobin 10.2 g/dL (14.0-18.0); Immature Granulocyte Absolute 0.07 K/mm3 (0.00-0.031); Immature Granulocyte Percent A 0.5 % (0-0.5); Lymphocytes Absolute Auto 0.43 K/mm3 (0.9-3.2); Lymphocytes Percent Auto 2.9 % (18.3-44.2); Mean Corpuscular HGB Conc 34.1 g/dl (32-36); Mean Corpuscular Hemoglobin 29.7 pg (26-34); Mean Corpuscular Volume 86.9 fl (80-100); Mean Platelet Volume 12.1 fl (7.4-10.4); Monocytes Absolute Auto 0.3 K/mm3 (0.1-0.6); Monocytes Percent Auto 2.2 % (2.6-8.5); Neutrophils Percent Auto 92.7 % (45.5-73.1); Platelet Count Result 71 k/mm3 (150-375); Red Blood Count 3.44 M/mm3 (4.6-6.20); Red Cell Distribution Width 12.8 % (11.5-14.5); White Blood Count 15.1 K/mm3 (4.5-10.0)
[2020-07-01 06:43] LABS: Hemoglobin A1C 5.7 % (<5.7)
[2020-07-01] MEDS: HEPARIN SODIUM 5,000 UNITS/ML VIAL 5000 UNITS SUB-Q ×2 (08:51→20:40)
[2020-07-01 08:56] LABS: Anion Gap 7 mmol/L (8-16); Blood Urea Nitrogen 39 mg/dL (9-20); Calcium 7.4 mg/dL (8.4-10.2); Carbon Dioxide 22 mmol/L (22-30); Chloride 108 mmol/L (98-107); Estimated CRCL calculation 27 ml/min; Estimated Glomerular Filt Rate 27; Glucose 133 mg/dL (75-110); Sodium 137 mmol/L (137-145)
[2020-07-01 08:59] LABS: Glucose Point of Care 117 (65-105)
[2020-07-01] MEDS: MAGNESIUM SULF 4 GM/WATER100ML 4 GM/100 ML BAG IVPB (10:00)
[2020-07-01] MEDS: POTASSIUM CHLORIDE 20 MEQ TABLET 40 MEQ PO ×3 (13:11→20:48)
--- NOTE | 2020-07-01 13:17 | WPDINTPN ---
Progress Note: A&P Assessment and Plan (1) Septic shock: Code(s): A41.9 - Sepsis, unspecified organism; R65.21 - Severe sepsis with septic shock Status: Acute Assessment and Plan: septic shock with hypotension, tachycardia, elevated lactic acid level, acute kidney injury and urinary tract infection - CT scan of the abdomen and pelvis showed bilateral ureteral stones with hydronephrosis, status post bilateral ureteral stents patient with cystoscopy and retrograde pyelogram. - Will stop vancomycin. Will continue imipenem for now until blood culture organism is speciated and sensitivities are available. If blood culture grow the same organism is urine then may potentially deescalate antibiotics and put him on Cipro versus 4th generation cephalosporin. - Levophed has been weaned off. Continue to monitor hemodynamics closely. - blood cultures growing Gram negative bacilli 2/2 bottles. Follow culture and sensitivity. (2) Acute kidney failure: Qualifiers: Acute renal failure type: unspecified Qualified Code(s): N17.9 - Acute kidney failure, unspecified Code(s): N17.9 - Acute kidney failure, unspecified Status: Acute Assessment and Plan: patient with acute kidney injury most likely related bilateral urethral lithiasis and pyelonephritis. - adequate IV fluids were given in the ER and OR. Continue maintenance IV fluids and encourage oral intake - John in place, will continue to monitor urine output, renal function electrolytes Good urine output. Renal parameters are improving as well. (3) Ureterolithiasis: Code(s): N20.1 - Calculus of ureter Status: Acute Assessment and Plan: as above - on hyoscyamine As per urology - pain control Definitive treatment for kidney stone will be in few weeks for now by Urology once his acute infection subsided. (4) Pyelonephritis: Code(s): N12 - Tubulo-interstitial nephritis, not specified as acute or chronic Status: Acute Assessment and Plan: antibiotics as above (5) Type 2 diabetes mellitus without complication, with no history of insulin use: Code(s): E11.9 - Type 2 diabetes mellitus without complications Status: Chronic Assessment and Plan: continue sliding scale insulin Accu-Cheks (6) DVT prophylaxis: Code(s): Z29.9 - Encounter for prophylactic measures, unspecified Status: Acute Assessment and Plan: continue heparin SQ Additional Plan discussed with patient updated with his condition and plan of care. I answered all questions. Code status: Full code He will be transferred to medical floor today. His central line will be discontinued before transfer out of the ICU. He has good peripheral lines. Subjective Date/time seen: 07/01/20 13:17 He has been weaned off from Levophed around 1:00 a.m.. He has good urine output with 2.6 L of urine but still fluid positive balance of 1 L. Leukocytosis is trending down. Thrombocytopenia has been noticed as well today. Magnesium and potassium nwas very low today. It has been repleted today. Renal parameters with improving creatinine of 2.4 today which is better from 3.1 yesterday. He denied have any significant symptoms. He has grown Enterobacter cloacae in urine. Blood cultures growing Gram-negative bacilli likely Enterobacter as well. Interval history: 69-year-old hypertensive male with BPH and type 2 diabetes admitted with septic shock and bilateral renal calculi. Was taken to the OR for urgent still stent placement 06/29. Review of Systems Review of Systems: All systems reviewed & are unremarkable except as noted in HPI and below Exam Const: General: comfortable and no acute distress HENMT: Mouth: Yes moist mucous membranes Eyes: Sclera: sclerae normal Pupils: Equal, round and reactive pupils present Neck: Neck: supple Resp: Effort & Inspection: n
[2020-07-01 13:37] LABS: Glucose Point of Care 144 (65-105)
--- NOTE | 2020-07-01 14:35 | PM.IMPN ---
Progress Note: A&P Assessment and Plan (1) Septic shock: Code(s): A41.9 - Sepsis, unspecified organism; R65.21 - Severe sepsis with septic shock Status: Acute Assessment and Plan: Had significant hypotension despite adequate IV fluid bolus. source of sepsis appears to be urinary. continue IV antibiotics and IV fluids. blood and urine cultures both growing Enterbactoer with final sensitivity and identification pending (2) Acute kidney failure: Qualifiers: Acute renal failure type: unspecified Qualified Code(s): N17.9 - Acute kidney failure, unspecified Code(s): N17.9 - Acute kidney failure, unspecified Status: Acute Assessment and Plan: likely secondary to obstructive nephropathy and sepsis. Continue IV fluids. Ureteral stents have been placed. creatinine has fallen to 2.4 today (3) Pyelonephritis: Code(s): N12 - Tubulo-interstitial nephritis, not specified as acute or chronic Status: Acute Assessment and Plan: Continue IV antibiotics. Urine cultures growing enterbacter and switched from ceftriaxone to imipenem by loading manager (4) Bilateral ureteral calculi: Code(s): N20.1 - Calculus of ureter Status: Acute Assessment and Plan: Continue pain control and Urology to do stone extraction 2-3 weeks stent 06/29 (5) Type 2 diabetes mellitus without complication, with no history of insulin use: Code(s): E11.9 - Type 2 diabetes mellitus without complications Status: Chronic Assessment and Plan: Accu-Cheks, sliding scale insulin coverage, hypoglycemia protocol. (6) Mixed hyperlipidemia: Code(s): E78.2 - Mixed hyperlipidemia Status: Chronic Assessment and Plan: Resume statin therapy when appropriate. (7) Benign essential hypertension: Code(s): I10 - Essential (primary) hypertension Status: Chronic Assessment and Plan: Patient has been hypotensive. Will hold home oral antihypertensives, beta-rashard and DEVANTE-inhibitor. Probable restart beta rashard 07/02 (8) Gastroesophageal reflux disease without esophagitis: Code(s): K21.9 - Gastro-esophageal reflux disease without esophagitis Status: Chronic Assessment and Plan: Continue PPI therapy. (9) Adult hypothyroidism: Code(s): E03.9 - Hypothyroidism, unspecified Status: Chronic Assessment and Plan: Continue levothyroxine and change to po Subjective Date/time seen: 07/01/20 14:35 Interval history: Date of visit 07/01. 69-year-old hypertensive male with BPH and type 2 diabetes admitted with septic shock and bilateral renal calculi. Was taken to the OR for urgent still stent placement 06/29 and now comfortable in ICU off pressors.. No nausea minimal discomfort with stents Exam Narrative: Exam Narrative: blood pressure 142/80 pulse 80 afebrile, off pressors Pupils equal reactive light sclera anicteric lungs clear CV regular rate rhythm no murmurs abdomen soft nontender no masses extremities without edema distal pulses 2+ with a central femoral line still Right groin John in place Neuro alert and no focal deficits Objective Data Vital Signs Vital Signs: Vital Signs - 24 hr 06/30/20 16:00 06/30/20 17:06 06/30/20 18:00 Temperature 37.4 C Pulse Rate 86 101 H 97 Respiratory Rate 22 H 20 Blood Pressure 119/73 118/73 105/66 Pulse Oximetry 95 97 06/30/20 20:00 06/30/20 22:00 07/01/20 00:00 Temperature 36.8 C Pulse Rate 87 84 81 Respiratory Rate 24 H 18 20 Blood Pressure 99/64 L 105/67 116/70 Pulse Oximetry 96 95 96 07/01/20 02:00 07/01/20 04:00 07/01/20 05:54 Temperature 36.5 C Pulse Rate 81 82 85 Respiratory Rate 18 24 H Blood Pressure 118/71 108/64 Pulse Oximetry 99 95 07/01/20 06:00 07/01/20 08:00 07/01/20 10:00 Temperature 36.5 C Pulse Rate 81 77 87 Respiratory Rate 18 17 20 Blood Pressure 100/67 110/78 117/72 Pulse Oxim
--- NOTE | 2020-07-01 15:20 | PC.NURSE ---
This patient, Davi Hendrix, was received from ICU on 07/01/20 at 1520. Patient/family oriented to unit policies and routines
--- NOTE | 2020-07-01 15:27 | PC.NURSE ---
Patient transferred to 246 via bed. Medications and belongings transferred with patient. Erika given report earlier in shift.
[2020-07-01 16:38] LABS: Glucose Point of Care 163 (65-105)
[2020-07-01 18:02] LABS: Anion Gap 9 mmol/L (8-16); Blood Urea Nitrogen 34 mg/dL (9-20); Calcium 8.1 mg/dL (8.4-10.2); Carbon Dioxide 24 mmol/L (22-30); Chloride 105 mmol/L (98-107); Estimated CRCL calculation 28 ml/min; Estimated Glomerular Filt Rate 29; Glucose 160 mg/dL (75-110); Sodium 138 mmol/L (137-145)
--- NOTE | 2020-07-01 18:57 | PM.PNNEP ---
Progress Note: A&P Assessment and Plan (1) Acute kidney injury: Code(s): N17.9 - Acute kidney failure, unspecified Status: Acute Assessment and Plan: due to multifactorial ATN: - prerenal factors - infection (stones + pyelonephritis) - obstruction - use of DEVANTE-I and metformin priot to admission - hypotension renal function slowly improving continue supportive care (2) Septic shock: Code(s): A41.9 - Sepsis, unspecified organism; R65.21 - Severe sepsis with septic shock Status: Acute Assessment and Plan: as noted on admission with elevated WBC, lactic acidosis, tachycarida + tachypnea, and hypotension off pressor therpy follow cultures -- on broad spectrum antibiotics continue current therapy (3) Bilateral ureteral calculi: Code(s): N20.1 - Calculus of ureter Status: Acute Assessment and Plan: Urology following s/p cystoscopy and bilateral retrograde pyelograms with bilateral ureteral stent placement will need for definitive treatment for stones at a later date once more stable (4) Benign essential hypertension: Code(s): I10 - Essential (primary) hypertension Status: Chronic Assessment and Plan: not an issue at this time follow trend of hemodynamics once BP trends to baseline, may need to slowly introduce BP medications (5) Diabetes: Code(s): E11.9 - Type 2 diabetes mellitus without complications Status: Chronic Assessment and Plan: follow accucheks on SSI Will continue to follow. Subjective Date/time seen: 07/01/20 18:57 Weaned off pressor therapy with improved urine output and renal function; transferred out of ICU; overall, seems to be feeling significantly better; no events overnight or earlier this AM. Exam Narrative: Exam Narrative: General: WD/WN male in NAD Heart: normal S1 and S2; no rub Lungs: clear to auscultation Abdomen: soft, nontender, nondistended, positive bowel sounds Extremities: no cyanosis or clubbing; no edema Skin: warm and dry Objective Data Vital Signs Vital Signs: Vital Signs Temp Pulse Resp BP Pulse Ox 07/01/20 13:08 79 21 H 143/81 H 96 07/01/20 10:00 87 20 117/72 95 07/01/20 08:00 36.5 C 77 17 110/78 96 07/01/20 06:00 81 18 100/67 94 07/01/20 05:54 85 07/01/20 04:00 36.5 C 82 24 H 108/64 95 07/01/20 02:00 81 18 118/71 99 07/01/20 00:00 81 20 116/70 96 06/30/20 22:00 84 18 105/67 95 06/30/20 20:00 36.8 C 87 24 H 99/64 L 96 Intake/Output Intake/Output: Intake & Output 06/28/20 06/29/20 06/30/20 07/01/20 23:59 23:59 23:59 23:59 Intake Total 3450 4027.4 4354 Output Total 60 1225 3075 Balance 3390 2802.4 1279 Meds/Results Medications: Active Medications Generic Name Dose Route Start Last Admin Trade Name Freq PRN Reason Stop Dose Admin Acetaminophen 1,000 mg 06/30/20 00:12 Acetaminophen 500 Mg Tablet PO Q6H PRN Mild Pain (1-3) or Fever Dextrose 12.5 gm 06/30/20 03:31 Dextrose 50% 25 Gm/50 Ml Syringe IV PUSH PRN PRN Hypoglycemia Protocol Glucagon 1 mg 06/30/20 03:31 Glucagon For Inj 1 Mg Vial IM PRN PRN Hypoglycemia Protocol Heparin Sodium (Porcine) 5,000 units 06/30/20 09:00 07/01/20 08:51 Heparin Sodium 5,000 Units/Ml Vial SUB-Q 5,000 units Q12HR HOLGER Administration Hyoscyamine 0.125 mg 06/30/20 00:12 Hyoscyamine Sulfate 0.125 Mg Tablet SUBLINGUAL Q6H PRN Bladder Spasm Dextrose/Lactated Ringer's 1,000 mls @ 100 mls/hr 06/30/20 00:12 07/01/20 13:33 Dextrose 5%/Lactated Ringers IV CONT 100 mls/hr .Q10H HOLGER Infusion Dextrose 1,000 mls @ 100 mls/hr 06/30/20 03:31 Dextrose 5% 1,000 Ml IVPB PRN PRN Hypoglycemia Protocol Imipenem/Cilastatin Sodium 250 mg in 100 mls @ 300 mls/hr 06/30/20 09:00 07/01/20 15:29
[2020-07-01 21:36] LABS: Glucose Point of Care 154 (65-105)
[2020-07-02 05:00] VITALS: BP 136/82; PULSE 92; RESP 20; TEMP 36.7; O2SAT 97
[2020-07-02 05:27] LABS: Hematocrit 30.4 % (42.0-52.0); Hemoglobin 10.5 g/dL (14.0-18.0); Mean Corpuscular HGB Conc 34.5 g/dl (32-36); Mean Corpuscular Hemoglobin 29.2 pg (26-34); Mean Corpuscular Volume 84.7 fl (80-100); Mean Platelet Volume 12.5 fl (7.4-10.4); Platelet Count Result 82 k/mm3 (150-375); Red Blood Count 3.59 M/mm3 (4.6-6.20); Red Cell Distribution Width 12.8 % (11.5-14.5); White Blood Count 10.5 K/mm3 (4.5-10.0)
[2020-07-02] MEDS: LEVOTHYROXINE SODIUM 88 MCG TABLET PO (06:42)
[2020-07-02] MEDS: DEXTROSE 5%/LACTATED RINGERS 1,000 ML 100 ML IV CONT (06:43)
[2020-07-02 07:55] LABS: Glucose Point of Care 118 (65-105)
[2020-07-02 08:32] LABS: Anion Gap 7 mmol/L (8-16); Blood Urea Nitrogen 35 mg/dL (9-20); Calcium 8.1 mg/dL (8.4-10.2); Carbon Dioxide 23 mmol/L (22-30); Chloride 109 mmol/L (98-107); Estimated CRCL calculation 36 ml/min; Estimated Glomerular Filt Rate 32; Glucose 126 mg/dL (75-110); Potassium 3.7 mmol/L (3.4-5.0); Sodium 139 mmol/L (137-145)
[2020-07-02 08:51] VITALS: PULSE 88; RESP 20; O2SAT 97
[2020-07-02] MEDS: HEPARIN SODIUM 5,000 UNITS/ML VIAL 5000 UNITS SUB-Q (08:51)
[2020-07-02 11:46] LABS: Glucose Point of Care 182 (65-105)
[2020-07-02] MEDS: SODIUM CHLORIDE 0.9% IV 1,000 ML 75 ML IV CONT (12:14)
[2020-07-02 12:37] VITALS: PULSE 88
[2020-07-02] MEDS: METOPROLOL SUCCINATE EXT REL 50 MG TABCR PO (12:37)
--- NOTE | 2020-07-02 13:03 | P.PNNP_ITS ---
Progress Note: A&P Assessment and Plan (1) Acute kidney injury: Code(s): N17.9 - Acute kidney failure, unspecified Status: Acute Assessment and Plan: * due to multifactorial ATN: - prerenal factors - infection (stones + pyelonephritis + bacteremia) - obstruction - use of DEVANTE-I and metformin prior to admission - hypotension/shock * renal function slowly improving * presumably normal baseline renal function * continue supportive care (2) Septic shock: Code(s): A41.9 - Sepsis, unspecified organism; R65.21 - Severe sepsis with septic shock Status: Acute Assessment and Plan: * as noted on admission with elevated WBC, lactic acidosis, tachycarida + tachypnea, and hypotension * off pressor therapy * Enterobacter bacteremia noted by blood cultures; Enterobacter cloacae complex by urine culture * on antibiotic therapy * continue current therapy (3) Bilateral ureteral calculi: Code(s): N20.1 - Calculus of ureter Status: Acute Assessment and Plan: * Urology following * s/p cystoscopy and bilateral retrograde pyelograms with bilateral ureteral stent placement * will need for definitive treatment for stones at a later date once more stable (4) Benign essential hypertension: Code(s): I10 - Essential (primary) hypertension Status: Chronic Assessment and Plan: * not an issue at this time * follow trend of hemodynamics * once BP trends to baseline, may need to slowly introduce BP medications * already back on metoprolol (5) Diabetes: Code(s): E11.9 - Type 2 diabetes mellitus without complications Status: Chronic Assessment and Plan: * follow accucheks * on SSI Will continue to follow. Subjective Date/time seen: 07/02/20 13:03 Continues to make slow and steady improvement since admission; remains hemodynamically stable with good urine output noted; no events overnight or fede ier today; feels reasonably welll with no apparent distress voiced at this time. Exam Narrative: Exam Narrative: General: WD/WN male in NAD Heart: normal S1 and S2; no rub Lungs: clear to auscultation Abdomen: soft, nontender, nondistended, positive bowel sounds Extremities: no cyanosis or clubbing; no edema Skin: warm and intact Objective Data Vital Signs Vital Signs: Vital Signs Temp Pulse Resp BP Pulse Ox 07/02/20 12:37 88 07/02/20 08:51 88 20 97 07/02/20 05:00 36.7 C 92 20 136/82 97 07/01/20 21:00 36.6 C 96 20 150/81 H 93 07/01/20 13:08 79 21 H 143/81 H 96 Intake/Output Intake/Output: Intake & Output 06/29/20 06/30/20 07/01/20 07/02/20 23:59 23:59 23:59 23:59 Intake Total 3450 4027.4 5100 2005 Output Total 60 1225 3075 1600 Balance 3390 2802.4 2025 405 Meds/Results Medications: Active Medications Generic Name Dose Route Start Last Admin Trade Name Freq PRN Reason Stop Dose Admin Acetaminophen 1,000 mg 06/30/20 00:12 Acetaminophen 500 Mg Tablet PO Q6H PRN Mild Pain (1-3) or Fever Dextrose 12.5 gm 06/30/20 03:31 Dextrose 50% 25 Gm/50 Ml Syringe IV PUSH PRN PRN Hypoglycemia Protocol Glucagon 1 m
--- NOTE | 2020-07-02 13:03 | PM.PNNEP ---
Progress Note: A&P Assessment and Plan (1) Acute kidney injury: Code(s): N17.9 - Acute kidney failure, unspecified Status: Acute Assessment and Plan: due to multifactorial ATN: - prerenal factors - infection (stones + pyelonephritis + bacteremia) - obstruction - use of DEVANTE-I and metformin prior to admission - hypotension/shock renal function slowly improving presumably normal baseline renal function continue supportive care (2) Septic shock: Code(s): A41.9 - Sepsis, unspecified organism; R65.21 - Severe sepsis with septic shock Status: Acute Assessment and Plan: as noted on admission with elevated WBC, lactic acidosis, tachycarida + tachypnea, and hypotension off pressor therapy Enterobacter bacteremia noted by blood cultures; Enterobacter cloacae complex by urine culture on antibiotic therapy continue current therapy (3) Bilateral ureteral calculi: Code(s): N20.1 - Calculus of ureter Status: Acute Assessment and Plan: Urology following s/p cystoscopy and bilateral retrograde pyelograms with bilateral ureteral stent placement will need for definitive treatment for stones at a later date once more stable (4) Benign essential hypertension: Code(s): I10 - Essential (primary) hypertension Status: Chronic Assessment and Plan: not an issue at this time follow trend of hemodynamics once BP trends to baseline, may need to slowly introduce BP medications already back on metoprolol (5) Diabetes: Code(s): E11.9 - Type 2 diabetes mellitus without complications Status: Chronic Assessment and Plan: follow accucheks on SSI Will continue to follow. Subjective Date/time seen: 07/02/20 13:03 Continues to make slow and steady improvement since admission; remains hemodynamically stable with good urine output noted; no events overnight or earlier today; feels reasonably welll with no apparent distress voiced at this time. Exam Narrative: Exam Narrative: General: WD/WN male in NAD Heart: normal S1 and S2; no rub Lungs: clear to auscultation Abdomen: soft, nontender, nondistended, positive bowel sounds Extremities: no cyanosis or clubbing; no edema Skin: warm and intact Objective Data Vital Signs Vital Signs: Vital Signs Temp Pulse Resp BP Pulse Ox 07/02/20 12:37 88 07/02/20 08:51 88 20 97 07/02/20 05:00 36.7 C 92 20 136/82 97 07/01/20 21:00 36.6 C 96 20 150/81 H 93 07/01/20 13:08 79 21 H 143/81 H 96 Intake/Output Intake/Output: Intake & Output 06/29/20 06/30/20 07/01/20 07/02/20 23:59 23:59 23:59 23:59 Intake Total 3450 4027.4 5100 2005 Output Total 60 1225 3075 1600 Balance 3390 2802.4 2025 405 Meds/Results Medications: Active Medications Generic Name Dose Route Start Last Admin Trade Name Freq PRN Reason Stop Dose Admin Acetaminophen 1,000 mg 06/30/20 00:12 Acetaminophen 500 Mg Tablet PO Q6H PRN Mild Pain (1-3) or Fever Dextrose 12.5 gm 06/30/20 03:31 Dextrose 50% 25 Gm/50 Ml Syringe IV PUSH PRN PRN Hypoglycemia Protocol Glucagon 1 mg 06/30/20 03:31 Glucagon For Inj 1 Mg Vial IM PRN PRN Hypoglycemia Protocol Heparin Sodium (Porcine) 5,000 units 06/30/20 09:00 07/02/20 08:51 Heparin Sodium 5,000 Units/Ml Vial SUB-Q 5,000 units Q12HR HOLGER Administration Hyoscyamine 0.125 mg 06/30/20 00:12 Hyoscyamine Sulfate 0.125 Mg Tablet SUBLINGUAL Q6H PRN Bladder Spasm Dextrose 1,000 mls @ 100 mls/hr 06/30/20 03:31 Dextrose 5% 1,000 Ml IVPB PRN PRN Hypoglycemia Protocol Ceftriaxone Sodium/Dextrose 1 gm in 50 mls @ 100 mls/hr 07/02/20 12:00 07/02/20 12:19 Rocephin 1 Gm/D5w 50 Ml IVPB 100 mls/hr Q24H HOLGER Administration Sodium Chloride 1,000 mls @ 75 mls/hr 07/02/20 11:40 07/02/20 12:20 N
[2020-07-02 14:05] VITALS: BP 120/67; PULSE 94; RESP 15; TEMP 36.8; O2SAT 96
[2020-07-02 16:33] LABS: Glucose Point of Care 91 (65-105)
--- NOTE | 2020-07-02 16:56 | PM.IMPN ---
Progress Note: A&P Assessment and Plan (1) Septic shock: Code(s): A41.9 - Sepsis, unspecified organism; R65.21 - Severe sepsis with septic shock Status: Acute Assessment and Plan: Had significant hypotension despite adequate IV fluid bolus. source of sepsis, urinary. continue IV antibiotics and IV fluids. blood and urine cultures both growing Enterbactoer with both sensitive to ceftriaxone so change back to that (2) Acute kidney failure: Qualifiers: Acute renal failure type: unspecified Qualified Code(s): N17.9 - Acute kidney failure, unspecified Code(s): N17.9 - Acute kidney failure, unspecified Status: Acute Assessment and Plan: likely secondary to obstructive nephropathy and sepsis. Continue IV fluids. Ureteral stents have been placed. creatinine has fallen to 2.1 today (3) Pyelonephritis: Code(s): N12 - Tubulo-interstitial nephritis, not specified as acute or chronic Status: Acute Assessment and Plan: Continue IV antibiotics. Urine cultures growing enterbacter sensitive to the ceftraxone D#3 IV antibiotics (4) Bilateral ureteral calculi: Code(s): N20.1 - Calculus of ureter Status: Acute Assessment and Plan: Continue pain control and Urology to do stone extraction 2-3 weeks stent 06/29 (5) Type 2 diabetes mellitus without complication, with no history of insulin use: Code(s): E11.9 - Type 2 diabetes mellitus without complications Status: Chronic Assessment and Plan: Accu-Cheks, sliding scale insulin coverage, hypoglycemia protocol. (6) Mixed hyperlipidemia: Code(s): E78.2 - Mixed hyperlipidemia Status: Chronic Assessment and Plan: Resume statin therapy when appropriate. (7) Benign essential hypertension: Code(s): I10 - Essential (primary) hypertension Status: Chronic Assessment and Plan: Patient has been hypotensive. Will hold home oral antihypertensives, beta-rashard and DEVANTE-inhibitor. Probable restart beta rashard 07/02 (8) Gastroesophageal reflux disease without esophagitis: Code(s): K21.9 - Gastro-esophageal reflux disease without esophagitis Status: Chronic Assessment and Plan: Continue PPI therapy. (9) Adult hypothyroidism: Code(s): E03.9 - Hypothyroidism, unspecified Status: Chronic Assessment and Plan: Continue levothyroxine and change to po Subjective Date/time seen: 07/02/20 16:56 Interval history: Date of visit 07/02. 69-year-old hypertensive male with BPH and type 2 diabetes admitted with septic shock and bilateral renal calculi. Was taken to the OR for urgent still stent placement 06/29 and now comfortable out of ICU 07/01 and off pressors.. No nausea minimal discomfort with stents Exam Narrative: Exam Narrative: blood pressure 120/66 pulse 74 afebrile Pupils equal reactive light sclera anicteric lungs clear CV regular rate rhythm no murmurs abdomen soft nontender no masses extremities without edema distal pulses 2+ with a central femoral line still Right groin John in place Neuro alert and no focal deficits Objective Data Vital Signs Vital Signs: Vital Signs - 24 hr 07/01/20 21:00 07/02/20 05:00 07/02/20 08:51 Temperature 36.6 C 36.7 C Pulse Rate 96 92 88 Respiratory Rate 20 20 20 Blood Pressure 150/81 H 136/82 Pulse Oximetry 93 97 97 07/02/20 12:37 07/02/20 14:05 Temperature 36.8 C Pulse Rate 88 94 Respiratory Rate 15 Blood Pressure 120/67 Pulse Oximetry 96 Intake/Output Intake/Output: Intake & Output 06/29/20 06/30/20 07/01/20 07/02/20 23:59 23:59 23:59 23:59 Intake Total 3450 4027.4 5100 2005 Output Total 60 1225 3075 1600 Balance 3390 2802.4 2025 405 Meds/Results Medications: Active Medications Generic Name Dose Route Start Last Admin Trade Name Freq PRN Reason Stop Dose Admin Acetaminophen 1,000 mg 06/30/20 00:12 A
[2020-07-02 21:34] VITALS: BP 136/88; PULSE 93; RESP 16; TEMP 36.5; O2SAT 98
[2020-07-02 23:01] LABS: Glucose Point of Care 109 (65-105)
[2020-07-03] MEDS: SODIUM CHLORIDE 0.9% IV 1,000 ML 75 ML IV CONT ×2 (02:01→15:54)
[2020-07-03 05:33] LABS: Basophils Percent Auto 0.4 % (0.2-1.2); Eosinophils Absolute Auto 0.7 K/mm3 (0-0.3); Eosinophils Percent Auto 8.6 % (0-4.4); Hemoglobin 9.9 g/dL (14.0-18.0); Immature Granulocyte Absolute 0.05 K/mm3 (0.00-0.031); Immature Granulocyte Percent A 0.6 % (0-0.5); Immature Platelet Fraction Pct 4.4 % (0.9-11.2); Lymphocytes Absolute Auto 1.01 K/mm3 (0.9-3.2); Lymphocytes Percent Auto 11.9 % (18.3-44.2); Mean Corpuscular HGB Conc 34.1 g/dl (32-36); Mean Corpuscular Hemoglobin 29.2 pg (26-34); Mean Corpuscular Volume 85.5 fl (80-100); Mean Platelet Volume 11.1 fl (7.4-10.4); Monocytes Absolute Auto 1.1 K/mm3 (0.1-0.6); Monocytes Percent Auto 13.2 % (2.6-8.5); Neutrophils Absolute Auto 5.6 K/mm3 (1.3-6.7); Neutrophils Percent Auto 65.3 % (45.5-73.1); Platelet Count Result 70 k/mm3 (150-375); Red Blood Count 3.39 M/mm3 (4.6-6.20); Red Cell Distribution Width 13.2 % (11.5-14.5); White Blood Count 8.5 K/mm3 (4.5-10.0)
[2020-07-03 05:50] LABS: Albumin Level 2.4 g/dL (3.5-5.1); Anion Gap 5 mmol/L (8-16); Blood Urea Nitrogen 27 mg/dL (9-20); Calcium 8.1 mg/dL (8.4-10.2); Carbon Dioxide 24 mmol/L (22-30); Chloride 113 mmol/L (98-107); Estimated CRCL calculation 46 ml/min; Estimated Glomerular Filt Rate 43; Glucose 88 mg/dL (75-110); Magnesium 1.5 mg/dL (1.6-2.3); Phosphorus 2.6 mg/dL (2.5-4.5); Potassium 3.5 mmol/L (3.4-5.0); Sodium 142 mmol/L (137-145)
[2020-07-03 06:00] VITALS: BP 130/76; PULSE 91; RESP 16; TEMP 36.2; O2SAT 97
[2020-07-03] MEDS: LEVOTHYROXINE SODIUM 88 MCG TABLET PO (06:54)
--- NOTE | 2020-07-03 07:38 | WPDUROPN2 ---
Progress Note: A&P Assessment and Plan (1) Septic shock: Code(s): A41.9 - Sepsis, unspecified organism; R65.21 - Severe sepsis with septic shock Status: Acute (2) Acute kidney failure: Qualifiers: Acute renal failure type: unspecified Qualified Code(s): N17.9 - Acute kidney failure, unspecified Code(s): N17.9 - Acute kidney failure, unspecified Status: Acute (3) Pyelonephritis: Code(s): N12 - Tubulo-interstitial nephritis, not specified as acute or chronic Status: Acute (4) Bilateral ureteral calculi: Code(s): N20.1 - Calculus of ureter Status: Acute Assessment and Plan: Overall clinical improvement noted. Will get KUB for stone position in anticipation of upcoming stone manipulation. John catheter can be removed at anytime. Subjective Subjective Date/Time Seen: 07/03/20 07:38 Tolerating stents and John catheter. Renal function slowly improving. Review of Systems Cardiovascular: Cardiovascular: Denies chest pain, Denies lightheadedness, Denies palpitations and Denies dyspnea Respiratory: Respiratory: Denies dyspnea Gastrointestinal: Gastrointestinal: Denies diarrhea, Denies nausea and Denies vomiting Genitourinary: Genitourinary: Denies hematuria and Denies dysuria Endocrine: Endocrine: Denies palpitations Exam Const: General: no acute distress Resp: Effort & Inspection: normal respiratory effort GI: Inspection: non-distended GI Palp: No abdominal tenderness and No Guarding due to palpation present (GI) Auscultation: normal bowel sounds Objective Data Vital Signs Vital Signs: Vital Signs - 24 hr 07/02/20 08:51 07/02/20 12:37 07/02/20 14:05 Temperature 98.3 F Pulse Rate 88 88 94 Respiratory Rate 20 15 Blood Pressure 120/67 Pulse Oximetry 97 96 07/02/20 21:34 07/03/20 06:00 Temperature 97.7 F 97.2 F L Pulse Rate 93 91 Respiratory Rate 16 16 Blood Pressure 136/88 130/76 Pulse Oximetry 98 97 Intake/Output Intake/Output: Intake & Output 06/30/20 07/01/20 07/02/20 07/03/20 23:59 23:59 23:59 23:59 Intake Total 4027.4 5100 2695 1350 Output Total 1225 3075 3100 2150 Balance 2802.4 5320 -327 -684 Meds/Results Medications: Active Medications Generic Name Dose Route Start Last Admin Trade Name Freq PRN Reason Stop Dose Admin Acetaminophen 1,000 mg 06/30/20 00:12 Acetaminophen 500 Mg Tablet PO Q6H PRN Mild Pain (1-3) or Fever Dextrose 12.5 gm 06/30/20 03:31 Dextrose 50% 25 Gm/50 Ml Syringe IV PUSH PRN PRN Hypoglycemia Protocol Glucagon 1 mg 06/30/20 03:31 Glucagon For Inj 1 Mg Vial IM PRN PRN Hypoglycemia Protocol Heparin Sodium (Porcine) 5,000 units 06/30/20 09:00 07/02/20 22:20 Heparin Sodium 5,000 Units/Ml Vial SUB-Q Not Given Q12HR HOLGER Hyoscyamine 0.125 mg 06/30/20 00:12 Hyoscyamine Sulfate 0.125 Mg Tablet SUBLINGUAL Q6H PRN Bladder Spasm Dextrose 1,000 mls @ 100 mls/hr 06/30/20 03:31 Dextrose 5% 1,000 Ml IVPB PRN PRN Hypoglycemia Protocol Ceftriaxone Sodium/Dextrose 1 gm in 50 mls @ 100 mls/hr 07/02/20 12:00 07/02/20 12:19 Rocephin 1 Gm/D5w 50 Ml IVPB 100 mls/hr Q24H HOLGER Administration Sodium Chloride 1,000 mls @ 75 mls/hr 07/02/20 11:40 07/03/20 02:01 Normal Saline Iv IV CONT 75 mls/hr .[id number] HOLGER Administration Magnesium Sulfate 2 gm in 50 mls @ 50 mls/hr 07/03/20 07:05 Magnesium Sulf 2 Gm/Water 50ml IVPB 07/03/20 08:04 ONCE ONE Insulin Aspart 2 - 5 units 07/01/20 12:00 07/02/20 23:06 Insulin Aspart (*Bkc) 100 Units/Ml SUB-Q Not Given 0800,1200,1700,2100 HOLGER Protocol Levothyroxine Sodium 88 mcg 07/02/20 06:30 07/03/20 06:54 Levothyroxine Sodium 88 Mcg Tablet PO 88 mcg DAILY@0630 HOLGER Administration Metoprolol Succinate 50 mg 07/02/20 11:35 07/02/20 12:37 Metoprolol Succinate Ext Rel 50 Mg Tabcr PO 50 mg
[2020-07-03] MEDS: POTASSIUM CHLORIDE 20 MEQ TABLET 40 MEQ PO (07:44)
[2020-07-03] MEDS: MAGNESIUM SULF 2 GM/WATER 50ML 2 GM/50 ML BAG IVPB (07:44)
[2020-07-03 07:58] LABS: Glucose Point of Care 97 (65-105)
[2020-07-03 08:11] VITALS: PULSE 91
[2020-07-03] MEDS: METOPROLOL SUCCINATE EXT REL 50 MG TABCR PO (08:11)
[2020-07-03] MEDS: HEPARIN SODIUM 5,000 UNITS/ML VIAL 5000 UNITS SUB-Q (10:52)
[2020-07-03 12:50] LABS: Glucose Point of Care 97 (65-105)
[2020-07-03 14:00] VITALS: BP 132/66; PULSE 88; RESP 18; TEMP 36.7; O2SAT 96
--- NOTE | 2020-07-03 14:34 | PM.IMPN ---
Progress Note: A&P Assessment and Plan (1) Septic shock: Code(s): A41.9 - Sepsis, unspecified organism; R65.21 - Severe sepsis with septic shock Status: Acute Assessment and Plan: Had significant hypotension despite adequate IV fluid bolus. source of sepsis, urinary. continue IV antibiotics and IV fluids. blood and urine cultures both growing Enterbactoer with both sensitive to ceftriaxone D #5 IV antibiotics (2) Acute kidney failure: Qualifiers: Acute renal failure type: unspecified Qualified Code(s): N17.9 - Acute kidney failure, unspecified Code(s): N17.9 - Acute kidney failure, unspecified Status: Acute Assessment and Plan: likely secondary to obstructive nephropathy and sepsis. Continue IV fluids and probable stop in am. . Ureteral stents have been placed. creatinine has fallen to 1.6 today (3) Pyelonephritis: Code(s): N12 - Tubulo-interstitial nephritis, not specified as acute or chronic Status: Acute Assessment and Plan: Continue IV antibiotics. Urine cultures growing enterbacter sensitive to the ceftraxone D#5 IV antibiotics (4) Bilateral ureteral calculi: Code(s): N20.1 - Calculus of ureter Status: Acute Assessment and Plan: Continue pain control and Urology to do stone extraction 2-3 weeks stent 06/29 voiding trial in am (5) Type 2 diabetes mellitus without complication, with no history of insulin use: Code(s): E11.9 - Type 2 diabetes mellitus without complications Status: Chronic Assessment and Plan: Accu-Cheks, sliding scale insulin coverage, hypoglycemia protocol. A1c 5,7 (6) Mixed hyperlipidemia: Code(s): E78.2 - Mixed hyperlipidemia Status: Chronic Assessment and Plan: Resume statin therapy when appropriate. (7) Benign essential hypertension: Code(s): I10 - Essential (primary) hypertension Status: Chronic Assessment and Plan: Patient was hypotensive. Pressure rising so beta rashard restarted 07/02 with DEVANTE still on hold (8) Gastroesophageal reflux disease without esophagitis: Code(s): K21.9 - Gastro-esophageal reflux disease without esophagitis Status: Chronic Assessment and Plan: Continue PPI therapy. (9) Adult hypothyroidism: Code(s): E03.9 - Hypothyroidism, unspecified Status: Chronic Assessment and Plan: Continue levothyroxine (10) Thrombocytopenia: Code(s): D69.6 - Thrombocytopenia, unspecified Status: Acute Assessment and Plan: Platelets been low since admission. Thought secondary to sepsis. Still fluctuating 70-80K. Would expected platelets to start to rise and will continue to follow. Low before heparin started so will continue at this point but HIT and anti-platelet antibodies with LON and B12 level all drawn. Subjective Date/time seen: 07/03/20 14:34 Interval history: Date of visit 07/03. 69-year-old hypertensive male with BPH and type 2 diabetes admitted with septic shock and bilateral renal calculi. Was taken to the OR for urgent still stent placement 06/29 and now comfortable out of ICU 07/01 and off pressors.. No nausea minimal discomfort with stents. Feels good Exam Narrative: Exam Narrative: blood pressure 130/76 pulse 84 afebrile Pupils equal reactive light sclera anicteric lungs clear CV regular rate rhythm no murmurs abdomen soft nontender no masses extremities without edema distal pulses 2+ John in place Neuro alert and no focal deficits Objective Data Vital Signs Vital Signs: Vital Signs - 24 hr 07/02/20 21:34 07/03/20 06:00 07/03/20 08:11 Temperature 36.5 C 36.2 C L Pulse Rate 93 91 91 Respiratory Rate 16 16 Blood Pressure 136/88 130/76 Pulse Oximetry 98 97 Intake/Output Intake/Output: Intake & Output 06/30/20 07/01/20 07/02/20 07/03/20 23:59 23:59 23:59 23:59 Intake Total 4027.4 5100 4642 1880 Out
--- NOTE | 2020-07-03 16:00 | P.PNNP_ITS ---
Progress Note: A&P Assessment and Plan (1) Acute kidney injury: Code(s): N17.9 - Acute kidney failure, unspecified Status: Acute Assessment and Plan: * due to multifactorial ATN: - prerenal factors - infection (stones + pyelonephritis + bacteremia) - obstruction - use of DEVANTE-I and metformin prior to admission - hypotension/shock * renal function slowly improving * presumably normal baseline renal function * continue supportive care (2) Septic shock: Code(s): A41.9 - Sepsis, unspecified organism; R65.21 - Severe sepsis with septic shock Status: Acute Assessment and Plan: * resolving * as noted on admission with elevated WBC, lactic acidosis, tachycarida + tachypnea, and hypotension * off pressor therapy * Enterobacter bacteremia noted by blood cultures; Enterobacter cloacae complex by urine culture * on antibiotic therapy * continue current therapy (3) Bilateral ureteral calculi: Code(s): N20.1 - Calculus of ureter Status: Acute Assessment and Plan: * Urology following * s/p cystoscopy and bilateral retrograde pyelograms with bilateral ureteral stent placement * will need for definitive treatment for stones at a later date once more stable (4) Benign essential hypertension: Code(s): I10 - Essential (primary) hypertension Status: Chronic Assessment and Plan: * reasonable control at this time * follow trend of hemodynamics * continue current therapy (5) Diabetes: Code(s): E11.9 - Type 2 diabetes mellitus without complications Status: Chronic Assessment and Plan: * follow accucheks * on SSI Will continue to follow. Subjective Date/time seen: 07/03/20 16:00 Overall, patient feels reasonably well; stable hemodynamics with good urine output in the last 24 - 48 hours; no events overnight or earlier this AM; no apparent distress noted. Exam Narrative: Exam Narrative: General: WD/WN male in NAD Heart: normal S1 and S2; no rub Lungs: clear to auscultation Abdomen: soft, nontender, nondistended, positive bowel sounds Extremities: no cyanosis or clubbing; no edema Skin: warm and intact Objective Data Vital Signs Vital Signs: Vital Signs Temp Pulse Resp BP Pulse Ox 07/03/20 14:00 36.7 C 88 18 132/66 96 07/03/20 08:11 91 07/03/20 06:00 36.2 C L 91 16 130/76 97 07/02/20 21:34 36.5 C 93 16 136/88 98 Intake/Output Intake/Output: Intake & Output 06/30/20 07/01/20 07/02/20 07/03/20 23:59 23:59 23:59 23:59 Intake Total 4027.4 5100 2745 3645 Output Total 1225 3075 3100 3450 Balance 2802.4 2024 - 195 Meds/Results Medications: Active Medications Generic Name Dose Route Start Last Admin Trade Name Freq PRN Reason Stop Dose Admin Acetaminophen 1,000 mg 06/30/20 00:12 Acetaminophen 500 Mg Tablet PO Q6H PRN Mild Pain (1-3) or Fever Dextrose 12.5 gm 06/30/20 03:31 Dextrose 50% 25 Gm/50 Ml Syringe IV PUSH PRN PRN Hypoglycemia Protocol Glucagon 1 mg 06/30/20 03:31 Glucagon For Inj 1 Mg Vial IM PRN PRN Hypoglycemia Protocol
--- NOTE | 2020-07-03 16:00 | PM.PNNEP ---
Progress Note: A&P Assessment and Plan (1) Acute kidney injury: Code(s): N17.9 - Acute kidney failure, unspecified Status: Acute Assessment and Plan: due to multifactorial ATN: - prerenal factors - infection (stones + pyelonephritis + bacteremia) - obstruction - use of DEVANTE-I and metformin prior to admission - hypotension/shock renal function slowly improving presumably normal baseline renal function continue supportive care (2) Septic shock: Code(s): A41.9 - Sepsis, unspecified organism; R65.21 - Severe sepsis with septic shock Status: Acute Assessment and Plan: resolving as noted on admission with elevated WBC, lactic acidosis, tachycarida + tachypnea, and hypotension off pressor therapy Enterobacter bacteremia noted by blood cultures; Enterobacter cloacae complex by urine culture on antibiotic therapy continue current therapy (3) Bilateral ureteral calculi: Code(s): N20.1 - Calculus of ureter Status: Acute Assessment and Plan: Urology following s/p cystoscopy and bilateral retrograde pyelograms with bilateral ureteral stent placement will need for definitive treatment for stones at a later date once more stable (4) Benign essential hypertension: Code(s): I10 - Essential (primary) hypertension Status: Chronic Assessment and Plan: reasonable control at this time follow trend of hemodynamics continue current therapy (5) Diabetes: Code(s): E11.9 - Type 2 diabetes mellitus without complications Status: Chronic Assessment and Plan: follow accucheks on SSI Will continue to follow. Subjective Date/time seen: 07/03/20 16:00 Overall, patient feels reasonably well; stable hemodynamics with good urine output in the last 24 - 48 hours; no events overnight or earlier this AM; no apparent distress noted. Exam Narrative: Exam Narrative: General: WD/WN male in NAD Heart: normal S1 and S2; no rub Lungs: clear to auscultation Abdomen: soft, nontender, nondistended, positive bowel sounds Extremities: no cyanosis or clubbing; no edema Skin: warm and intact Objective Data Vital Signs Vital Signs: Vital Signs Temp Pulse Resp BP Pulse Ox 07/03/20 14:00 36.7 C 88 18 132/66 96 07/03/20 08:11 91 07/03/20 06:00 36.2 C L 91 16 130/76 97 07/02/20 21:34 36.5 C 93 16 136/88 98 Intake/Output Intake/Output: Intake & Output 06/30/20 07/01/20 07/02/20 07/03/20 23:59 23:59 23:59 23:59 Intake Total 4027.4 5100 2745 3645 Output Total 1225 3075 3100 3450 Balance 2802.4 2024 195 Meds/Results Medications: Active Medications Generic Name Dose Route Start Last Admin Trade Name Freq PRN Reason Stop Dose Admin Acetaminophen 1,000 mg 06/30/20 00:12 Acetaminophen 500 Mg Tablet PO Q6H PRN Mild Pain (1-3) or Fever Dextrose 12.5 gm 06/30/20 03:31 Dextrose 50% 25 Gm/50 Ml Syringe IV PUSH PRN PRN Hypoglycemia Protocol Glucagon 1 mg 06/30/20 03:31 Glucagon For Inj 1 Mg Vial IM PRN PRN Hypoglycemia Protocol Heparin Sodium (Porcine) 5,000 units 06/30/20 09:00 07/03/20 10:52 Heparin Sodium 5,000 Units/Ml Vial SUB-Q 5,000 units Q12HR HOLGER Administration Hyoscyamine 0.125 mg 06/30/20 00:12 Hyoscyamine Sulfate 0.125 Mg Tablet SUBLINGUAL Q6H PRN Bladder Spasm Dextrose 1,000 mls @ 100 mls/hr 06/30/20 03:31 Dextrose 5% 1,000 Ml IVPB PRN PRN Hypoglycemia Protocol Ceftriaxone Sodium/Dextrose 1 gm in 50 mls @ 100 mls/hr 07/02/20 12:00 07/03/20 12:37 Rocephin 1 Gm/D5w 50 Ml IVPB Infused Q24H HOLGER Infusion Sodium Chloride 1,000 mls @ 75 mls/hr 07/02/20 11:40 07/03/20 15:54 Normal Saline Iv IV CONT 75 mls/hr .[id number] HOLGER Administration Insulin Aspart 2 - 5 units 07/01/20 12:00 07/03/20 16:53 Insulin Aspar
[2020-07-03 16:53] LABS: Glucose Point of Care 116 (65-105)
[2020-07-03 22:00] VITALS: BP 149/86; PULSE 94; RESP 16; TEMP 37.1; O2SAT 98
[2020-07-03 22:35] LABS: Glucose Point of Care 105 (65-105)
--- NOTE | 2020-07-04 00:42 | PC.NURSE ---
pl[place] ct low at 70, marcia jha ordered to hold heparin 5,000 units.
[2020-07-04] MEDS: SODIUM CHLORIDE 0.9% IV 1,000 ML 75 ML IV CONT (05:10)
[2020-07-04 05:37] LABS: Basophils Percent Auto 0.4 % (0.2-1.2); Eosinophils Absolute Auto 0.5 K/mm3 (0-0.3); Eosinophils Percent Auto 7.4 % (0-4.4); Hemoglobin 9.8 g/dL (14.0-18.0); Immature Granulocyte Absolute 0.09 K/mm3 (0.00-0.031); Immature Granulocyte Percent A 1.2 % (0-0.5); Lymphocytes Absolute Auto 0.97 K/mm3 (0.9-3.2); Lymphocytes Percent Auto 13.3 % (18.3-44.2); Mean Corpuscular HGB Conc 33.8 g/dl (32-36); Mean Corpuscular Hemoglobin 29.1 pg (26-34); Mean Corpuscular Volume 86.1 fl (80-100); Mean Platelet Volume 11.6 fl (7.4-10.4); Monocytes Absolute Auto 1.1 K/mm3 (0.1-0.6); Monocytes Percent Auto 14.6 % (2.6-8.5); Neutrophils Absolute Auto 4.6 K/mm3 (1.3-6.7); Neutrophils Percent Auto 63.1 % (45.5-73.1); Platelet Count Result 97 k/mm3 (150-375); Red Blood Count 3.37 M/mm3 (4.6-6.20); Red Cell Distribution Width 13.2 % (11.5-14.5); White Blood Count 7.3 K/mm3 (4.5-10.0)
[2020-07-04 05:46] LABS: Albumin Level 2.5 g/dL (3.5-5.1); Anion Gap 5 mmol/L (8-16); Blood Urea Nitrogen 22 mg/dL (9-20); Calcium 8.1 mg/dL (8.4-10.2); Carbon Dioxide 24 mmol/L (22-30); Chloride 112 mmol/L (98-107); Estimated CRCL calculation 49 ml/min; Estimated Glomerular Filt Rate 47; Glucose 86 mg/dL (75-110); Magnesium 1.6 mg/dL (1.6-2.3); Phosphorus 3.2 mg/dL (2.5-4.5); Potassium 3.5 mmol/L (3.4-5.0); Sodium 141 mmol/L (137-145)
[2020-07-04 05:52] VITALS: BP 138/76; PULSE 88; RESP 16; TEMP 37.1; O2SAT 98
[2020-07-04] MEDS: LEVOTHYROXINE SODIUM 88 MCG TABLET PO (06:24)
[2020-07-04 06:33] LABS: Vitamin B12 > 1000.0 pg/mL (239-931)
[2020-07-04 07:32] LABS: Glucose Point of Care 86 (65-105)
[2020-07-04 07:50] LABS: Glucose Point of Care 83 (65-105)
[2020-07-04 08:40] VITALS: PULSE 88
[2020-07-04] MEDS: METOPROLOL SUCCINATE EXT REL 50 MG TABCR PO (08:40)
--- NOTE | 2020-07-04 10:32 | P.PNNP_ITS ---
Progress Note: A&P Assessment and Plan (1) Acute kidney injury: Code(s): N17.9 - Acute kidney failure, unspecified Status: Acute Assessment and Plan: * due to multifactorial ATN: - prerenal factors - infection (stones + pyelonephritis + bacteremia) - obstruction - use of DEVANTE-I and metformin prior to admission - hypotension/shock * renal function slowly improving * presumably normal baseline renal function - will try to confirm with records from PCP * continue supportive care (2) Septic shock: Code(s): A41.9 - Sepsis, unspecified organism; R65.21 - Severe sepsis with septic shock Status: Acute Assessment and Plan: * resolving * as noted on admission with elevated WBC, lactic acidosis, tachycarida + tachyp irina, and hypotension * off pressor therapy * Enterobacter bacteremia noted by blood cultures; Enterobacter cloacae complex by urine culture * on antibiotic therapy * continue current therapy (3) Bilateral ureteral calculi: Code(s): N20.1 - Calculus of ureter Status: Acute Assessment and Plan: * Urology following * s/p cystoscopy and bilateral retrograde pyelograms with bilateral ureteral stent placement * will need for definitive treatment for stones at a later date (4) Benign essential hypertension: Code(s): I10 - Essential (primary) hypertension Status: Chronic Assessment and Plan: * reasonable control at this time * follow trend of hemodynamics * continue current therapy (5) Diabetes: Code(s): E11.9 - Type 2 diabetes mellitus without complications Status: Chronic Assessment and Plan: * follow accucheks * on SSI Will continue to follow - not opposed to discharge from renal perspective. Subjective Date/time seen: 07/04/20 10:32 Feeling quite well at this time; no apparent distress voiced; eating and drinking quite well; continues to have good urine output; no events overnight or earlier this AM. Exam Narrative: Exam Narrative: General: WD/WN male in NAD Heart: normal S1 and S2; no rub Lungs: clear to auscultation Abdomen: soft, nontender, nondistended, positive bowel sounds Extremities: no cyanosis or clubbing; no edema Skin: no rash or nodules Objective Data Vital Signs Vital Signs: Vital Signs Temp Pulse Resp BP Pulse Ox 07/04/20 08:40 88 07/04/20 05:52 37.1 C 88 16 138/76 98 07/03/20 22:00 37.1 C 94 16 149/86 H 98 07/03/20 14:00 36.7 C 88 18 132/66 96 Intake/Output Intake/Output: Intake & Output 07/01/20 07/02/20 07/03/20 07/04/20 23:59 23:59 23:59 23:59 Intake Total 5100 2745 4125 1463 Output Total 3075 3100 3450 3075 Balance 2024 095 -6086 Meds/Results Medications: Active Medications Generic Name Dose Route Start Last Admin Trade Name Freq PRN Reason Stop Dose Admin Acetaminophen 1,000 mg 06/30/20 00:12 Acetaminophen 500 Mg Tablet PO Q6H PRN Mild Pain (1-3) or Fever Citalopram Hydrobromide 20 mg 07/04/20 09:00 Citalopram Hydrobromide 20 Mg Tablet PO DAILY HOLGER Dextrose 12.5 gm 06/30/20 03:31 Dextrose 50% 25 Gm/50 Ml Syringe IV PUSH PRN PRN Hy
--- NOTE | 2020-07-04 10:32 | PM.PNNEP ---
Progress Note: A&P Assessment and Plan (1) Acute kidney injury: Code(s): N17.9 - Acute kidney failure, unspecified Status: Acute Assessment and Plan: due to multifactorial ATN: - prerenal factors - infection (stones + pyelonephritis + bacteremia) - obstruction - use of DEVANTE-I and metformin prior to admission - hypotension/shock renal function slowly improving presumably normal baseline renal function - will try to confirm with records from PCP continue supportive care (2) Septic shock: Code(s): A41.9 - Sepsis, unspecified organism; R65.21 - Severe sepsis with septic shock Status: Acute Assessment and Plan: resolving as noted on admission with elevated WBC, lactic acidosis, tachycarida + tachypnea, and hypotension off pressor therapy Enterobacter bacteremia noted by blood cultures; Enterobacter cloacae complex by urine culture on antibiotic therapy continue current therapy (3) Bilateral ureteral calculi: Code(s): N20.1 - Calculus of ureter Status: Acute Assessment and Plan: Urology following s/p cystoscopy and bilateral retrograde pyelograms with bilateral ureteral stent placement will need for definitive treatment for stones at a later date (4) Benign essential hypertension: Code(s): I10 - Essential (primary) hypertension Status: Chronic Assessment and Plan: reasonable control at this time follow trend of hemodynamics continue current therapy (5) Diabetes: Code(s): E11.9 - Type 2 diabetes mellitus without complications Status: Chronic Assessment and Plan: follow accucheks on SSI Will continue to follow - not opposed to discharge from renal perspective. Subjective Date/time seen: 07/04/20 10:32 Feeling quite well at this time; no apparent distress voiced; eating and drinking quite well; continues to have good urine output; no events overnight or earlier this AM. Exam Narrative: Exam Narrative: General: WD/WN male in NAD Heart: normal S1 and S2; no rub Lungs: clear to auscultation Abdomen: soft, nontender, nondistended, positive bowel sounds Extremities: no cyanosis or clubbing; no edema Skin: no rash or nodules Objective Data Vital Signs Vital Signs: Vital Signs Temp Pulse Resp BP Pulse Ox 07/04/20 08:40 88 07/04/20 05:52 37.1 C 88 16 138/76 98 07/03/20 22:00 37.1 C 94 16 149/86 H 98 07/03/20 14:00 36.7 C 88 18 132/66 96 Intake/Output Intake/Output: Intake & Output 07/01/20 07/02/20 07/03/20 07/04/20 23:59 23:59 23:59 23:59 Intake Total 5100 2745 4125 1463 Output Total 3075 3100 3450 3075 Balance 2025 -355 698 -0138 Meds/Results Medications: Active Medications Generic Name Dose Route Start Last Admin Trade Name Freq PRN Reason Stop Dose Admin Acetaminophen 1,000 mg 06/30/20 00:12 Acetaminophen 500 Mg Tablet PO Q6H PRN Mild Pain (1-3) or Fever Citalopram Hydrobromide 20 mg 07/04/20 09:00 Citalopram Hydrobromide 20 Mg Tablet PO DAILY HOLGER Dextrose 12.5 gm 06/30/20 03:31 Dextrose 50% 25 Gm/50 Ml Syringe IV PUSH PRN PRN Hypoglycemia Protocol Ferrous Sulfate 324 mg 07/04/20 09:00 Ferrous Sulfate 324 Mg Tablet PO DAILY HOLGER Finasteride 5 mg 07/04/20 09:00 Finasteride 5 Mg Tablet PO DAILY HOLGER Glucagon 1 mg 06/30/20 03:31 Glucagon For Inj 1 Mg Vial IM PRN PRN Hypoglycemia Protocol Hyoscyamine 0.125 mg 06/30/20 00:12 Hyoscyamine Sulfate 0.125 Mg Tablet SUBLINGUAL Q6H PRN Bladder Spasm Dextrose 1,000 mls @ 100 mls/hr 06/30/20 03:31 Dextrose 5% 1,000 Ml IVPB PRN PRN Hypoglycemia Protocol Ceftriaxone Sodium/Dextrose 1 gm in 50 mls @ 100 mls/hr 07/02/20 12:00 07/03/20 12:37 Rocephin 1 Gm/D5w 50 Ml IVPB Infused Q24H HOLGER Infusion Insulin Aspart 2 - 5 u
[2020-07-04] MEDS: CITALOPRAM HYDROBROMIDE 20 MG TABLET PO (11:02)
[2020-07-04] MEDS: TAMSULOSIN HCL 0.4 MG CAPSULE PO (11:02)
[2020-07-04] MEDS: PANTOPRAZOLE 40 MG TABLET PO (11:02)
[2020-07-04] MEDS: FERROUS SULFATE 324 MG TABLET PO (11:02)
[2020-07-04] MEDS: FINASTERIDE 5 MG TABLET PO (11:02)
[2020-07-04] MEDS: ROSUVASTATIN 10 MG TABLET 40 MG PO (11:02)
--- NOTE | 2020-07-04 11:29 | PM.DS ---
DS: Admitting Diagnosis Admitting Diagnosis Admitting Diagnosis: Sepsis/UTI/ureterolithiasis DS: Discharge Diagnosis Discharge Diagnosis (1) Septic shock: Code(s): A41.9 - Sepsis, unspecified organism; R65.21 - Severe sepsis with septic shock Status: Acute Assessment and Plan: 69yo male presents with lower abdominal pain, chills, and n/v. He was noted to be septic in ED with Lactic 2.6. Patient was treated with a 30 cc/kilogram IV fluid bolus and started on ceftriaxone IV. CT abdomen pelvis demonstrated a right proximal ureteral 4 mm stone, mild obstructive nephropathy and left distal ureteral 5 mm stone without hydronephrosis. Urology was consulted and took the patient immediately to the operating room to have bilateral ureteral stents placed. The patient became hypotensive in the operating room and recovery and the patient was started on peripheral Anjum-Synephrine. Central line placed and started on Levophed. Source of septic shock was urinary. Treated with IV antibiotics and IV fluids. Blood and urine cultures both growing Enterobacter with both sensitive to ceftriaxone. Able to be weaned off the pressors and central ine ultimately able to be removed. He completed 6 days of IV antibiotics. (2) Acute kidney failure: Qualifiers: Acute renal failure type: unspecified Qualified Code(s): N17.9 - Acute kidney failure, unspecified Code(s): N17.9 - Acute kidney failure, unspecified Status: Acute Assessment and Plan: Cr 3.8 on admission. DANIELLE likely secondary to obstructive nephropathy and sepsis. He was also on metformin and DEVANTE inhibitor on admission. Treated with IV fluids. Nephrology following. Creatinine has fallen to 1.5 today. Okay to stop IV fluids and have patient follow up with repeat labs. Follow with nephrology as needed. Discussed. (3) Pyelonephritis: Code(s): N12 - Tubulo-interstitial nephritis, not specified as acute or chronic Status: Acute Assessment and Plan: Related to obstructive uropathy. Treated with IV antibiotics. Urine and Blood cultures growing enterobacter sensitive to ceftriaxone. Continue abx after discharge (4) Bilateral ureteral calculi: Code(s): N20.1 - Calculus of ureter Status: Acute Assessment and Plan: CT abdomen pelvis on admission showing a right proximal ureteral 4 mm stone, mild obstructive nephropathy and left distal ureteral 5 mm stone without hydronephrosis. Urology was consulted and patient was taken to OR immediately for bilateral ureteral stent placement on 06/29/20. John removed and voiding normally. Plan for patient to return for stent removal. urology office will call to set up appointment. Discussed with urology. Okay to resume medications for BPH. (5) Type 2 diabetes mellitus without complication, with no history of insulin use: Code(s): E11.9 - Type 2 diabetes mellitus without complications Status: Chronic Assessment and Plan: A1c 5.7. The patient's blood glucose was monitored closely. Glucose remained well controlled. We continued AccuCheks covering with sliding scale. Hypoglycemia protocol available as needed. Metformin remained on hold. No plans to resume this at this time. (6) Mixed hyperlipidemia: Code(s): E78.2 - Mixed hyperlipidemia Status: Chronic Assessment and Plan: Stable. LFTs normal on admission. Crestor resumed. (7) Benign essential hypertension: Code(s): I10 - Essential (primary) hypertension Status: Chronic Assessment and Plan: Patient was hypotensive so anti-HTN medications held. As he improved, metoprolol was able to be addd back. He tolerated this well. DEVANTE inhibitor remained on hold. No plans to resume this at this time. (8) Gastroesophageal reflux disease without esophagitis: Code(s): K21.9 - Gastro-esophageal reflux disease without esophagitis Status: Chr
[2020-07-04 15:38] LABS: Glucose Point of Care 110 (65-105)
[2020-07-05 14:15] LABS: Heparin Induced Platelet Antib Negative (Negative)
[2020-07-09 18:52] LABS: Platelet Ab,Indirect (IgA) NEGATIVE (NEGATIVE); Platelet Ab,Indirect (IgG) NEGATIVE (NEGATIVE); Platelet Ab,Indirect (IgM) NEGATIVE (NEGATIVE)
--- NOTE | 2020-07-11 12:51 | PC.NURSE ---
LON- negative HEP induced plt Ab- negative Plt Ab- 0.013 Dr. Holcomb aware of findings.
[2020-08-10 14:48] LABS: Platelet Antibody, Direct IgG NEGATIVE
--- NOTE | 2020-08-15 12:31 | PC.NURSE ---
Plt Ab Direct IgG is negative. Dr. Aicha hadley.
== END 2020-07-04 13:12 | disposition home or self-care (01) | DRG 853 ==
LOC: ANHED 20:35 → ANHSURGERY 21:24 → ANHED 21:31 → ANH3MEDSUR 21:34 → ANHIMU 22:50 → ANHICU 06-30 00:17 → ANH2MED 07-01 15:29
PROVIDERS: Emergency Medicine; Internal Medicine; Internal Medicine Critical Care Medicine; Physician Assistant; Urology; Admitting Provider Family Medicine; Emergency Provider Emergency Medicine; PCP Internal Medicine; Visit Provider Internal Medicine
PROC: 0T788DZ Dilation of Bilateral Ureters with Intraluminal Device, Via Natural or Artificial Opening Endoscopic (ICD-10-PCS; CPT 52352; principal; 2020-06-29 21:00)
DX: A41.89 Other specified sepsis (principal); R65.21 Severe sepsis with septic shock; N17.9 Acute kidney failure, unspecified; N20.1 Calculus of ureter; N12 Tubulo-interstitial nephritis, not specified as acute or chronic; D69.6 Thrombocytopenia, unspecified; D51.9 Vitamin B12 deficiency anemia, unspecified; D50.9 Iron deficiency anemia, unspecified; N40.0 Benign prostatic hyperplasia without lower urinary tract symptoms; K21.9 Gastro-esophageal reflux disease without esophagitis; E78.2 Mixed hyperlipidemia; I10 Essential (primary) hypertension; E11.9 Type 2 diabetes mellitus without complications; E03.9 Hypothyroidism, unspecified; F32.9 Major depressive disorder, single episode, unspecified; Z79.84 Long term (current) use of oral hypoglycemic drugs; Z79.899 Other long term (current) drug therapy
CPT/HCPCS: 36415; 74018; 74176; 74420; 80048; 80053; 80069; 81001; 82607; 83036; 83605; 83690; 83735; 83880; 84100; 85025; 85027; 85055; 85610; 85730; 86022; 86023; 86038; 86140; 86850; 86900; 86901; 87040; 87077; 87086; 87088; 87186; 93005; 96374; 99285; A9270; C1751; C1758; C1769; C2617; C9113; J0131; J0330; J0696; J0743; J1644; J1815; J2250; J2370; J2405; J2704; J3010; J3370; J3475; J7030; J7060; J7120; J7121; Q9966

== ENCOUNTER 2020-07-11 10:49 | Outpatient (CLI) | payer MEDICARE, SELFPAY ==
--- NOTE | 2020-07-11 10:51 | ECG_ITS ---
Measurements Intervals [place] Rate: 77 P: 13 [place]: 134 QRS: 42 QRSD: 98 T: 31 QT: 409 QTc: 464 Interpretive Statements SINUS RHYTHM ATRIAL PREMATURE COMPLEX DELAYED PRECORDIAL R/S TRANSITION T WAVE ABNORMALITY IN ANTERIOR LEADS- CONSIDER ISCHEMIA BASELINE ARTIFACT- I, II, III, AVR, AVL, AVF ABNORMAL ECG Electronically Signed On 07-11-2020 12:20:10 BRINELL TESTER by Marlon Berman D.O.
[2020-07-11 12:22] LABS: Prothrombin Time 13.7 Seconds (11.1-14.7)
[2020-07-11 12:23] LABS: Partial Thromboplastin Time 26.9 SECONDS (22.3-36.8)
== END 2020-07-11 10:50 | disposition home or self-care (01) ==
PROVIDERS: PCP Internal Medicine; Visit Provider Urology
DX: N20.9 Urinary calculus, unspecified (principal); I10 Essential (primary) hypertension; Z01.818 Encounter for other preprocedural examination; R94.31 Abnormal electrocardiogram [ECG] [EKG]
CPT/HCPCS: 36415; 85610; 85730; 87086; 93005

== ENCOUNTER 2020-07-11 10:56 | Outpatient (CLI) | payer MEDICARE, SELFPAY ==
[2020-07-11 12:15] LABS: Basophils Absolute Auto 0.1 K/mm3 (0.0-0.1); Basophils Percent Auto 1.1 % (0.2-1.2); Eosinophils Absolute Auto 0.4 K/mm3 (0-0.3); Eosinophils Percent Auto 6.8 % (0-4.4); Hematocrit 31.3 % (42.0-52.0); Hemoglobin 9.8 g/dL (14.0-18.0); Immature Granulocyte Absolute 0.07 K/mm3 (0.00-0.031); Immature Granulocyte Percent A 1.3 % (0-0.5); Lymphocytes Absolute Auto 1.04 K/mm3 (0.9-3.2); Lymphocytes Percent Auto 19.5 % (18.3-44.2); Mean Corpuscular HGB Conc 31.3 g/dl (32-36); Mean Corpuscular Hemoglobin 29.2 pg (26-34); Mean Corpuscular Volume 93.2 fl (80-100); Mean Platelet Volume 9.7 fl (7.4-10.4); Monocytes Absolute Auto 0.5 K/mm3 (0.1-0.6); Monocytes Percent Auto 8.6 % (2.6-8.5); Neutrophils Absolute Auto 3.3 K/mm3 (1.3-6.7); Neutrophils Percent Auto 62.7 % (45.5-73.1); Platelet Count Result 522 k/mm3 (150-375); Red Blood Count 3.36 M/mm3 (4.6-6.20); Red Cell Distribution Width 13.7 % (11.5-14.5); White Blood Count 5.3 K/mm3 (4.5-10.0)
[2020-07-11 12:23] LABS: Potassium 3.5 mmol/L (3.4-5.0)
[2020-07-11 12:32] LABS: Alanine Aminotransferase 28 U/L (4-50); Albumin Level 3.5 g/dL (3.5-5.1); Alkaline Phosphatase 63 U/L (38-126); Anion Gap 6 mmol/L (8-16); Aspartate Amino Transferase 30 U/L (17-59); Bilirubin,Total 0.7 mg/dL (0.2-1.3); Blood Urea Nitrogen 17 mg/dL (9-20); Calcium 8.8 mg/dL (8.4-10.2); Carbon Dioxide 32 mmol/L (22-30); Chloride 103 mmol/L (98-107); Cholesterol 147 mg/dL (0-200); Estimated Glomerular Filt Rate 55; Glucose 81 mg/dL (75-110); HDL Direct 37 mg/dL; Sodium 141 mmol/L (137-145); Triglycerides 119 mg/dL (<150)
[2020-07-11 12:37] LABS: Hemoglobin A1C 5.5 % (<5.7)
[2020-07-11 12:38] LABS: LDL Cholesterol Direct 88 mg/dL
[2020-07-11 12:57] LABS: Creatinine Urine 44.2 mg/dL
[2020-07-11 13:17] LABS: Prostate Specific Antigen 0.8 ng/mL (< OR = 4.0)
[2020-07-11 15:04] LABS: MALB Creatinine Ratio 492.8 mg/g (0-30); Microalbumin Urine Random 217.8 mg/L (0-16.7)
== END 2020-07-11 10:57 | disposition home or self-care (01) ==
PROVIDERS: PCP Internal Medicine; Visit Provider Internal Medicine
DX: E11.9 Type 2 diabetes mellitus without complications (principal); E03.9 Hypothyroidism, unspecified; E78.5 Hyperlipidemia, unspecified; Z12.5 Encounter for screening for malignant neoplasm of prostate; N17.9 Acute kidney failure, unspecified; D69.6 Thrombocytopenia, unspecified
CPT/HCPCS: 36415; 80053; 80061; 82043; 83036; 84153; 84443; 85025; 85610; 85730; 87086; 93005; G0103

== ENCOUNTER 2020-07-12 01:54 | Outpatient (CLI) | payer MEDICARE, SELFPAY ==
[2020-07-12 22:35] LABS: SARS-CoV-2 RNA PCR Negative
== END 2020-07-12 01:55 | disposition home or self-care (01) ==
LOC: ANHCOVIDDT 01:54
PROVIDERS: PCP Internal Medicine; Visit Provider Urology
DX: Z01.812 Encounter for preprocedural laboratory examination (principal); Z20.828 Contact with and (suspected) exposure to other viral communicable diseases
CPT/HCPCS: 87635; C9803; U0003

== ENCOUNTER 2020-07-14 02:58 | Day surgery (SDC) | payer MEDICARE, SELFPAY ==
[2020-07-10 15:51] VITALS: BMI 25.0
--- NOTE | 2020-07-11 09:51 | P.HP_ITS ---
History of Present Illness History of Present Illness Consent: Risks, benefits, and alternatives have been discussed and questions answered. Patient agrees to proceed with procedure. Chief complaint: bilat urolithiasis Narrative: Davi Hendrix is a 69 year old male recently admitted with bilateral obstructing ureteral stones. He underwent emergent placement of bilateral ureteral stents and now presents for definitive management of a 4 mm right proximal ureteral stone of 5 mm left distal ureteral stone. Review of Systems Cardiovascular: Cardiovascular: Denies chest pain, Denies lightheadedness, Denies palpitations and Denies dyspnea Respiratory: Respiratory: Denies dyspnea Gastrointestinal: Gastrointestinal: Denies diarrhea, Denies nausea and Denies vomiting Genitourinary: Genitourinary: Denies hematuria and Denies dysuria Endocrine: Endocrine: Denies palpitations PMFSH Past Medical History Medical History Adult hypothyroidism Anemia due to vitamin B12 deficiency B12 deficiency Benign essential hypertension BMI 26.0-26.9,adult BPH loc w/o ur obs/LUTS Depression Gastroesophageal reflux disease without esophagitis Iron deficiency anemia Mixed hyperlipidemia Type 2 diabetes mellitus without complication, with no history of insulin use Family History Family History Mother Family history of cardiac disorder Family history of heart disease in male family member before age 55 Father Family history of chronic obstructive pulmonary disease Sibling Family history of malignant neoplasm of ovary, Onset Age: 54 Social History Social History Smoking status: Never smoker Alcohol intake: current Substance use: never Gender identity (if verbalized by the patient): Male Spiritual care concerns: No Meds Home Medications and Allergies Home Medications Medication Instructions Recorded Confirmed Type tamsulosin 0.4 mg capsule 0.4 mg PO DAILY #90 cap 01/18/20 07/10/20 Rx pantoprazole 40 mg tablet,delayed 40 mg PO QAM #90 tablet 03/13/20 07/10/20 Rx release rosuvastatin 40 mg tablet 40 mg PO DAILY #90 tablet 03/13/20 07/10/20 Rx levothyroxine 88 mcg tablet 88 mcg PO DAILY #90 tablet 04/13/20 07/10/20 Rx finasteride 5 mg PO DAILY 06/30/20 07/10/20 History cefdinir 300 mg PO Q12H 8 Days #16 cap 07/04/20 07/10/20 Rx citalopram 20 mg PO QAM 07/10/20 07/10/20 History metformin 1,000 mg PO BID 07/10/20 07/10/20 History metoprolol succinate 50 mg PO QAM 07/10/20 07/10/20 History Allergies Allergy/AdvReac Type Severity Reaction Status Date / Time No Known Allergies Allergy Verified 07/10/20 15:43 Exam Const: General: no acute distress Resp: Effort & Inspection: normal respiratory effort GI: Inspection: non-distended GI Palp: No abdominal tenderness and No Guarding due to palpation present (GI) Auscultation: normal bowel sounds Assessment and Plan Assessment and plan (1) Bilateral ureteral calculi: Code(s): N20.1 - Calculus of ureter Status: Acute Assessment and Plan: * Right ESWL and left ureteroscopy with stone extraction
--- NOTE | 2020-07-13 12:43 | WPDANESEPPF ---
Anes - Initial Pre Proc Eval Procedure: Operation Date: 07/14/20 12:30 Proposed Procedures p Right Extracorporeal Shock Wave Lithotripsy, - Xu Art MD s Left Ureteroscopy with Stone Extraction - Xu Art MD Date/Time: 07/13/20 12:43 Surgeon: Xu Art MD Pre Op Diagnosis: bilat urolithiasis Patient Data Age: 69 Gender: M Height: 1.75 m Weight: 77 kg Allergies Allergy/AdvReac Type Severity Reaction Status Date / Time No Known Allergies Allergy Verified 07/14/20 10:31 Home Medications Medication Instructions Recorded Confirmed Type pantoprazole 40 mg tablet,delayed 40 mg PO QAM #90 tablet 03/13/20 07/14/20 Rx release rosuvastatin 40 mg tablet 40 mg PO DAILY #90 tablet 03/13/20 07/14/20 Rx finasteride 5 mg PO DAILY 06/30/20 07/14/20 History cefdinir 300 mg PO Q12H 8 Days #16 cap 07/04/20 07/14/20 Rx citalopram 20 mg PO QAM 07/10/20 07/14/20 History metformin 1,000 mg PO BID 07/10/20 07/14/20 History metoprolol succinate 50 mg PO QAM 07/10/20 07/14/20 History levothyroxine 100 mcg tablet 100 mcg PO DAILY #90 tablet 07/11/20 07/14/20 Rx tamsulosin 0.4 mg capsule 0.4 mg PO DAILY #90 cap 07/12/20 07/14/20 Rx Patient hx anesthesia problems: none Family hx anesthesia problems: none PMFSH Past Medical History Medical History (Updated 07/13/20 @ 12:45 by Carlo Up MD) Adult hypothyroidism Anemia due to vitamin B12 deficiency B12 deficiency Benign essential hypertension BMI 26.0-26.9,adult BPH loc w/o ur obs/LUTS Depression Diabetes Gastroesophageal reflux disease without esophagitis Iron deficiency anemia Mixed hyperlipidemia Thrombocytopenia Type 2 diabetes mellitus without complication, with no history of insulin use Family History Family History Mother Family history of cardiac disorder Family history of heart disease in male family member before age 55 Father Family history of chronic obstructive pulmonary disease Sibling Family history of malignant neoplasm of ovary, Onset Age: 54 Social History Social History Smoking status: Never smoker Alcohol intake: current Alcohol use details: [employer] ALCOHOL Substance use: never Living arrangements: alone Gender identity (if verbalized by the patient): Male Spiritual care concerns: No Anes - Eval Final PreProcedure Day of Procedure 07/13/20 12:43 Patient weight: normal Heart: regular rate and rhythm Lungs: clear to auscultation and normal air movement Airway: Mallampati scale class II Neurological: alert and oriented Last oral intake: >/= 8 hours ASA classification: III Emergent: no Anesthetic plan: proceed Anesthesia type and monitoring: general LMA and ETT Informed Consent: The patient's anesthetic plan and its attendant risks and benefits were discussed with the patient/family/POA. Questions were solicited and answers provided to the satisfaction of the patient/family/POA.
[2020-07-14] VITALS (11 sets, daily range): BP systolic 138–155; BP diastolic 46–82; PULSE 59–77; RESP 15–20; TEMP 36.3–36.7; O2SAT 97–100
--- NOTE | ~2020-07-14 | XR_ITS ---
EXAMINATION: XR abdomen/kub 1V INDICATION: Bilateral nephrolithiasis TECHNIQUE: Supine views of the abdomen were obtained on 2 radiographs. COMPARISON: 07/03/2020 FINDINGS: Bilateral internal ureteral stents are in expected position. An 8 mm stone projects in the lower pole of the right kidney. There is a 3 mm stone projecting adjacent to the stent in the left di stal ureter. Multiple pelvic phleboliths are noted. There are no dilated loops of bowel. IMPRESSION: 1. Right nephrolithiasis and small stone adjacent to the internal ureteral stent in the left distal u reter. Reviewed, dictated and finalized at location A. PS ARCHITECT IMPRESSION: 1. Right nephrolithiasis and small stone adjacent to the internal ureteral sten t in the left distal ureter.
--- NOTE | 2020-07-14 06:32 | WPDHPUPDATE1 ---
History and Physical Update Update Date/Time: 07/14/20 06:32 History and Physical has been reviewed, including an updated exam of the patient. There are NO changes in the patient's condition. Risks, benefits, and alternatives have been discussed and questions answered. Patient agrees to proceed with procedure.
[2020-07-14] MEDS: LACTATED RINGERS 1,000 ML 30 ML IV CONT ×2 (10:45→13:42)
[2020-07-14 10:52] LABS: Glucose Point of Care 78 (65-105)
[2020-07-14] MEDS: ceFAZolin 2 GM/D5W 50 ML 2 GM/50 ML BAG IVPB (12:33)
--- NOTE | 2020-07-14 13:06 | PM.PROC ---
Procedure Note - Detailed Date of procedure: 07/14/20 Pre-op diagnosis: bilat urolithiasis Post-op diagnosis: same Procedure performed: 1. Cysto, left ureteral stent removal, left ureteroscopy with stone extraction. 2. Right ESWL Description of procedure: The patient was brought to the operative suite where he is prepped and draped in a routine sterile fashion while in the dorsal lithotomy position after the uneventful induction of a general LMA anesthetic. A 19F rigid cystoscope was placed in the bladder. There are no urethral strictures. His prostatic urethra measures, approximately, 2.0cm with no median lobe enlargement. The bladder mucosa was endoscopically normal without hyperemia or neoplasm. There was a single, orthotopic ureteral orifice bilaterally, each with an indwelling ureteral stent. Using a grasping forceps, the left ureteral stent is removed with ease and 0.035 glidewire was advanced into the left renal pelvis under fluoroscopy. The distal ureter was dilated with an 8F/10F ureteral dilator. Ureteroscopy was undertaken with a short, tapered, semi-rigid ureteroscope and the stone was extracted with ease using a 1.9F Escape disposable stone basket. Due to the ease of this manipulation I opted not to replace a ureteral stent. The patient's bladder was emptied and attention was turned to right ESWL. I opted to leave his right ureteral stent indwelling. At this point, the patient was placed in the supine position on the Dornier lithotripsy table. The focal point of the lithotripter was placed at a 7-8mm right mid-pole renal calculus. A total of 2500 shocks were delivered at a power setting of 4. There appeared to be good fragmentation of the stone. The patient tolerated the procedure well and was taken to the recovery room in good condition. Anesthesia: GLMA Surgeon: Xu Art MD Estimated blood loss (mL): 0 Drains: No Packing: No Pathology: yes (Left ureteral stone) Complications: None Condition: stable Disposition: PACU
--- NOTE | 2020-07-14 14:29 | SUR.PHASEI ---
1425- juice given for hypoglycemia
[2020-07-14 14:30] LABS: Glucose Point of Care 52 (65-105)
[2020-07-14 14:33] LABS: Glucose Point of Care 53 (65-105)
[2020-07-14] MEDS: fentaNYL CITRATE INJ (*CRX) 100 MCG/2 ML VIAL 25 MCG IV PUSH ×3 (14:33→14:39)
--- NOTE | 2020-07-14 14:38 | SUR.PHASEI ---
1432- PATIENT AWAKE AND ALERT. MORE APPLE JUICE GIVEN. ASYMPTOMATIC.
[2020-07-14 14:47] LABS: Glucose Point of Care 54 (65-105)
--- NOTE | 2020-07-14 15:06 | SUR.PHASEI ---
5019- DR. SALVADOR CALLED WITH PATIENT'S BLOOD SUGAR. CAME INTO PACU TO SEE PATIENT. PATIENT ASYMPTOMATIC. AGREEABLE TO MOVE TO OP RECOVERY FOR ORAL PAIN MEDICATION AND LUNCH TRAY.
[2020-07-14 15:37] LABS: Glucose Point of Care 71 (65-105)
== END 2020-07-14 16:00 | disposition home or self-care (01) ==
PROVIDERS: PCP Internal Medicine; Visit Provider Urology
PROC: (CPT 50590; principal; 2020-07-14 12:30)
PROC: (CPT 52352; 2020-07-14 12:30)
DX: N20.1 Calculus of ureter (principal); E11.9 Type 2 diabetes mellitus without complications; E78.2 Mixed hyperlipidemia; E03.9 Hypothyroidism, unspecified; D51.9 Vitamin B12 deficiency anemia, unspecified; I10 Essential (primary) hypertension; N40.0 Benign prostatic hyperplasia without lower urinary tract symptoms; F32.9 Major depressive disorder, single episode, unspecified; K21.9 Gastro-esophageal reflux disease without esophagitis; D50.9 Iron deficiency anemia, unspecified; Z79.84 Long term (current) use of oral hypoglycemic drugs
CPT/HCPCS: 52352; 50590; 74018; 82365; 88300; A9270; C1769; J0690; J3010; J7030; J7120

== ENCOUNTER 2020-07-23 07:46 | Outpatient (CLI) | payer MEDICARE, SELFPAY ==
--- NOTE | ~2020-07-23 | XR_ITS ---
EXAMINATION: XR abdomen/kub 1V EXAM DATE: 07/23/2020 08:02 INDICATION: Kidney stone on left side. Recent lithotripsy. TECHNIQUE: Frontal projection(s) of the abdomen for interpretation. Comparison is made to prior exami nation from 07/14/2020. FINDINGS: Left ureteral stent has been removed. There is a right ureteral stent in position with pos sible small stone along its course proximally, finding indicated. Colonic gas overlying both kidneys. Multiple pelvic calcifications consistent with phleboliths. Nonobstructive bowel gas pattern. IMPRESSION: 1. Right ureteral stent in position. Possible small stones along its course. Reviewed, dictated and finalized at location A. CTOR OF PLACEMENT
== END 2020-07-23 07:47 | disposition home or self-care (01) ==
LOC: ANHIMG 07:51
PROVIDERS: PCP Internal Medicine; Visit Provider Urology
DX: N20.0 Calculus of kidney (principal); Z96.0 Presence of urogenital implants
CPT/HCPCS: 74018